=== PATIENT | female | born 2000 | race Caucasian/White ===

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

== ENCOUNTER 2021-03-02 13:17 | Outpatient (REF) | payer MEDICAID, SELFPAY ==
[2021-03-03 16:19] LABS: COVID-19 RT-PCR UVMMC Result Positive (Negative)
== END 2021-03-02 13:18 | disposition home or self-care (01) ==
LOC: NCHCN 13:17
PROVIDERS: Visit Provider Nurse Practitioner Family
DX: Z20.822 Contact with and (suspected) exposure to COVID-19 (principal)
CPT/HCPCS: U0003

== ENCOUNTER 2021-11-09 13:22 | Outpatient (REF) | payer MEDICAID, SELFPAY ==
[2021-11-09 15:14] LABS: Bacteria Few HPF (Negative); C & S Indicated? C&S Done As Ordered; Casts Negative LPF (Negative); Crystals Negative HPF (Negative); Epithelial Cells Moderate HPF (Negative); Mucus Negative (Negative); RBC 0-2 HPF (0-2); WBC 20-50 HPF (0-5)
[2021-11-11 14:49] LABS: GC Result Negative (Negative)
[2021-11-11 14:57] LABS: Chlamydia Result Positive (Negative)
== END 2021-11-09 13:23 | disposition home or self-care (01) ==
LOC: LBN 13:22
PROVIDERS: Visit Provider Physician Assistant Medical
DX: R35.0 Frequency of micturition (principal)
CPT/HCPCS: 87491; 87591; 81015; 87086; 87480; 87510; 87660

== ENCOUNTER 2021-11-25 14:57 | Emergency (ER) | payer MEDICAID, SELFPAY ==
[2021-11-25 15:20] VITALS: BP 122/64; PULSE 74; RESP 18; TEMP 36.8
--- NOTE | 2021-11-25 15:30 | RT.EKG_ITS ---
APPROVED REPORT Exam: Resting ECG Reason for Exam: dizzy Patient Location: E HR:57 bpm ECG Measurements Heart Rate 57 AXIS ME 157 P 18 QRSd 79 QRS 61 QT 424 T 36 QTc 413 Conclusion Sinus bradycardia...rate< 60
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
[2021-11-25 16:00] VITALS: RESP 18
[2021-11-25 16:04] LABS: Abs Immature Grans 0.03 10^3/uL (0.0-0.06); Absolute Basophil Count 0.08 10^3/uL (0.0-0.2); Absolute Eosinophil Count 0.26 10^3/uL (0.0-0.7); Absolute Lymphocyte Count 2.93 10^3/uL (1.2-3.4); Absolute Monocyte Count 0.41 10^3/uL (0.1-0.8); Absolute Neutrophil Count 4.35 10^3/uL (1.2-6.7); Eosinophils % 3.2; HCT 48.2 % (36.0-46.0); HGB 15.9 g/dL (11.2-15.7); Immature Grans % 0.4; Lymphocytes % 36.4; MCH 28.6 pg (27.0-33.0); MCV 87 fL (80-95); Monocytes % 5.1; Neutrophils % 53.9; Platelet Count 277 10^3/uL (130-400); RBC 5.56 10^6/uL (3.93-5.22); RDW 12.4 % (11.7-14.6); RDW-SD 39.8 fL; WBC 8.06 10^3/uL (4.4-10.8)
[2021-11-25 16:10] LABS: Bilirubin Negative (Negative); Blood Negative (Negative); Clarity Clear (Clear); Glucose Negative (Negative); Ketones Negative (Negative); Leukocyte Esterase Negative (Negative); Nitrite Negative (Negative); Urobilinogen 0.2 EU/dL (Up TO 0.2)
[2021-11-25] MEDS: Normal Saline 1,000 ML 1000 ML IV (16:10)
[2021-11-25] MEDS: Meclizine 25 MG TAB PO (16:10)
[2021-11-25] MEDS: Ondansetron 4 MG/2 ML VIAL IVP (16:10)
[2021-11-25] MEDS: Ketorolac 30 MG/ML VIAL IVP (16:10)
[2021-11-25 16:20] VITALS: BP 120/74; BP 120/78; BP 122/80; PULSE 65; PULSE 70; PULSE 72
[2021-11-25 16:20] LABS: ALT 58 U/L (14-59); AST 26 U/L (15-37); Albumin 4.3 g/dL (3.4-5.0); Alkaline Phosphatase 91 U/L (46-116); Anion Gap 8.9 mmol/L (3-11); BUN 14 mg/dL (7-18); Bilirubin, Total 0.3 mg/dL (0.2-1.0); CO2 28.1 mmol/L (21.0-32.0); Calcium 9.3 mg/dL (8.5-10.1); Chloride 106 mmol/L (98-107); Glucose 91 mg/dL (74-106); Sodium 143 mmol/L (136-145); Total Protein 8.5 g/dL (6.4-8.2)
[2021-11-25 16:21] LABS: *AMPHETAMINES SCREEN URINE Negative (Negative); *BARBITURATES SCREEN URINE Negative (Negative); *BENZODIAZEPINES SCREEN URINE Negative (Negative); Cannabinoids THC Negative (Negative); Cocaine Screen,Urine Negative (Negative); METHADONE URINE SCREEN Negative (Negative); OPIATES URINE SCREEN Negative (Negative)
[2021-11-25 16:22] LABS: Tricyclic Antidepressants Negative (Negative)
[2021-11-25 17:02] VITALS: BP 120/72; PULSE 68; RESP 18; TEMP 36.8; O2SAT 98
== END 2021-11-25 16:57 | disposition home or self-care (01) ==
PROVIDERS: Emergency Provider Physician Assistant; PCP Nurse Practitioner Family
DX: R51.9 Headache, unspecified (principal); R42 Dizziness and giddiness; R11.0 Nausea
CPT/HCPCS: 36415; 80053; 80307; 81025; 93005; 96361; 96374; 96375; 99284; 81003; 85025; 93010; 99283; J1885; J2405

== ENCOUNTER 2021-12-20 12:59 | Outpatient (REF) | payer MEDICAID, SELFPAY ==
[2021-12-21 15:26] LABS: Chlamydia Result Negative (Negative); GC Result Negative (Negative)
== END 2021-12-20 13:00 | disposition home or self-care (01) ==
LOC: LBN 12:59
PROVIDERS: PCP Nurse Practitioner Family; Visit Provider Obstetrics & Gynecology
DX: Z11.3 Encounter for screening for infections with a predominantly sexual mode of transmission (principal)
CPT/HCPCS: 87491; 87591

== ENCOUNTER 2022-02-03 14:49 | Outpatient (REF) | payer MEDICAID, SELFPAY ==
[2022-02-05 15:43] LABS: Chlamydia Result Negative (Negative); GC Result Negative (Negative)
== END 2022-02-03 14:50 | disposition home or self-care (01) ==
LOC: LBN 14:49
PROVIDERS: PCP Nurse Practitioner Family; Visit Provider Physician Assistant Medical
DX: N89.8 Other specified noninflammatory disorders of vagina (principal); Z11.3 Encounter for screening for infections with a predominantly sexual mode of transmission
CPT/HCPCS: 87491; 87591; 87480; 87510; 87660

== ENCOUNTER 2022-02-06 02:29 | Outpatient (CLI) | payer MEDICAID, SELFPAY ==
[2022-02-06 11:09] LABS: Kit/Specimen SENT
[2022-02-06 11:20] LABS: Abs Immature Grans 0.04 10^3/uL (0.0-0.06); Absolute Basophil Count 0.05 10^3/uL (0.0-0.2); Absolute Eosinophil Count 0.14 10^3/uL (0.0-0.7); Absolute Lymphocyte Count 2.05 10^3/uL (1.2-3.4); Absolute Monocyte Count 0.44 10^3/uL (0.1-0.8); Absolute Neutrophil Count 8.01 10^3/uL (1.2-6.7); Basophils % 0.5; Eosinophils % 1.3; HCT 39.3 % (36.0-46.0); HGB 13.8 g/dL (11.2-15.7); Immature Grans % 0.4; Lymphocytes % 19.1; MCH 29.1 pg (27.0-33.0); MCHC 35.1 % (32.0-36.0); MCV 83 fL (80-95); MPV 9.1 fL (8.0-11.0); Monocytes % 4.1; Neutrophils % 74.6; Platelet Count 227 10^3/uL (130-400); RBC 4.74 10^6/uL (3.93-5.22); RDW 13.2 % (11.7-14.6); RDW-SD 39.8 fL; WBC 10.73 10^3/uL (4.4-10.8)
[2022-02-06 12:08] LABS: TSH (W/Ref FT4) 2.13 uIU/mL (0.36-3.74)
[2022-02-07 09:30] LABS: Hepatitis B Surface Ag Negative (Negative)
[2022-02-07 10:10] LABS: Hepatitis C Ab w Rflx HCV PCR Negative (Negative)
[2022-02-07 10:45] LABS: Rubella IgG Ab (UVM) Positive (See Note); Varicella IgG Antibody Negative (See Note)
[2022-02-07 11:26] LABS: HIV-1/2 Ag & Ab Screen Negative (Negative)
[2022-02-07 22:24] LABS: Syphilis IgG w/Reflex Nonreactive (Nonreactive)
[2022-02-28 22:17] LABS: Result Summary NEGATIVE; Specimen WB Whole Blood
== END 2022-02-06 02:30 | disposition home or self-care (01) ==
LOC: LBO 02:29
PROVIDERS: PCP Nurse Practitioner Family; Visit Provider Advanced Practice Midwife
DX: Z34.01 Encounter for supervision of normal first pregnancy, first trimester; F32.9 Major depressive disorder, single episode, unspecified
CPT/HCPCS: 36415; 81220; 81222; 86787; 86803; 86850; 86900; 86901; 87340; 87389; 84443; 85025; 86762; 86780

== ENCOUNTER 2022-02-06 15:23 | Outpatient (REF) | payer MEDICAID, SELFPAY ==
[2022-02-08 08:24] LABS: Chlamydia Result Negative (Negative); GC Result Negative (Negative)
== END 2022-02-06 15:24 | disposition home or self-care (01) ==
LOC: LBN 15:23
PROVIDERS: PCP Nurse Practitioner Family; Visit Provider Advanced Practice Midwife
DX: Z34.91 Encounter for supervision of normal pregnancy, unspecified, first trimester; R30.0 Dysuria
CPT/HCPCS: 87491; 87591; 87480; 87510; 87660

== ENCOUNTER 2022-03-12 01:49 | Emergency (ER) | payer MEDICAID, SELFPAY ==
[2022-03-12 01:56] VITALS: BP 120/74; PULSE 102; RESP 16; TEMP 36.9; O2SAT 98
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
[2022-03-12] MEDS: Acetaminophen 325 MG TAB 650 MG PO (02:10)
[2022-03-12] MEDS: Lidocaine 2% Viscous 15 ML CUP PO (02:15)
== END 2022-03-12 02:27 | disposition home or self-care (01) ==
PROVIDERS: Emergency Provider Emergency Medicine; PCP Nurse Practitioner Family
DX: O26.892 Other specified pregnancy related conditions, second trimester (principal); J02.9 Acute pharyngitis, unspecified; Z3A.16 16 weeks gestation of pregnancy
CPT/HCPCS: 87880; 99282; 87081

== ENCOUNTER → 2022-04-10 01:25 | Outpatient (CLI) | payer MEDICAID, SELFPAY ==
--- NOTE | 2022-04-10 06:32 | DI.US_ITS ---
Exam(s) US OB 2-3 TRIMESTER EXAM: US OB 2-3 TRIMESTER CLINICAL HISTORY: ,z34.90. TECHNIQUE: Transabdominal obstetrical ultrasound was performed. COMPARISON: No exams were available for comparison FINDINGS: There is a single viable intrauterine gestation with cardiac activity identified-150 bpm. Amniotic fluid: There is a normal amount of amniotic fluid. Placental location: The placenta is posterior grade 0. The distance from the tip the placenta to the internal cervical os is 1.6 cm. ANATOMY: A 3 vessel umbilical cord is seen. A four-chamber cardiac view was obtained. Right and left ventricular outflow tracts were imaged. There are no obvious abnormalities of the spinal column evident. There is no obvious abnormal ity of the anterior abdominal wall. stomach and urinary bladder are identified and there is no evidence of hydronephrosis. No abnormalities of the upper lip region are identified. No evidence of choroid plexus cysts i n the brain. Dating parameters place this at approximately 20 weeks and 3 days gestational age. BPD measures 20 weeks and 1 day HC measures 20 weeks and 4 days AC measures 20 weeks and 4 days FL measures 20 weeks and 3 days Estimated weight is 359 gm-0 pounds, 13 ounces Fetus is at the 50th percentile on the Hadlock scale. IMPRESSION:: Single viable intrauterine gestation which is approximately 20 weeks and 3 days gestati onal age, implying an RONALD of August 25, 2022. There are no obvious anomalies evident on today's study. The placenta is posterior and slightly low lying. On 1 image today the placenta to internal cervical os distance is 1.6 cm. This should be recheck in the 3rd trimester. There is a normal amount of amniotic fluid. DATA REPOSITORY:
== END ==
PROVIDERS: PCP Nurse Practitioner Family; Visit Provider Advanced Practice Midwife
DX: Z34.92 Encounter for supervision of normal pregnancy, unspecified, second trimester (principal)
CPT/HCPCS: 76805

== ENCOUNTER 2022-05-28 01:08 | Outpatient (CLI) | payer MEDICAID, SELFPAY ==
[2022-05-28 12:07] LABS: HCT 35.1 % (36.0-46.0); MCH 29.6 pg (27.0-33.0); MCHC 34.2 % (32.0-36.0); MCV 87 fL (80-95); MPV 8.8 fL (8.0-11.0); Platelet Count 214 10^3/uL (130-400); RBC 4.05 10^6/uL (3.93-5.22); RDW-SD 44.8 fL; WBC 11.14 10^3/uL (4.4-10.8)
[2022-05-28 12:23] LABS: Glucose,1 Hr (Glucola) 92 mg/dL (80-140)
== END 2022-05-28 01:09 | disposition home or self-care (01) ==
LOC: LBO 01:08
PROVIDERS: PCP Nurse Practitioner Family; Visit Provider Advanced Practice Midwife
DX: Z34.92 Encounter for supervision of normal pregnancy, unspecified, second trimester (principal)
CPT/HCPCS: 36415; 82950; 85027

== ENCOUNTER 2022-06-06 00:38 | Outpatient (CLI) | payer MEDICAID, SELFPAY ==
--- NOTE | 2022-06-06 07:15 | DI.US_ITS ---
Exam(s) US OB TIFFANY WEIGHT EXAM: US OB TIFFANY WEIGHT CLINICAL HISTORY: F/U LOW LYING PLACENTA,o44.42. TECHNIQUE: Transabdominal obstetrical ultrasound performed. COMPARISON: US US OB 2-3 TRIMESTER from 04/10/2022 FINDINGS: Number of fetuses: 1 position: CEPHALIC Placental location: There is a grade 1 posterior placenta. The placental tip is 8.3 cm from the inte rnal os. No evidence of previa. BIOMETRIC DATA: BPD: 7.2cm, 28weeks 6days HC: 26.78cm, 29weeks 1day AC: 25.12cm, 29weeks 2days FL: 5.28cm, 28weeks 1day EFW: 1,297.66g, 2lb 14.73oz, 48.3% Composite Age: 28weeks 6days RONALD: 08/23/2022 Heart Rate: 141bpm Amniotic fluid index: 13.31cm. Visually, amount of fluid is within normal limits. IMPRESSION: 1. Single live intrauterine gestation as above. 2. No evidence of a low-lying placenta. 3. Estimated weight is 1297gms. This is the 48th percentile. 4. Amniotic fluid index is 13.3 cm. Visually within normal limits. DATA REPOSITORY:
== END 2022-06-06 00:58 ==
LOC: DI 00:38
PROVIDERS: PCP Nurse Practitioner Family; Visit Provider Advanced Practice Midwife
DX: O44.43 Low lying placenta NOS or without hemorrhage, third trimester (principal); Z3A.29 29 weeks gestation of pregnancy
CPT/HCPCS: 76816

== ENCOUNTER 2022-06-20 09:59 | Outpatient (REF) | payer MEDICAID, SELFPAY ==
[2022-06-21 15:01] LABS: Chlamydia Result Negative (Negative); GC Result Negative (Negative)
== END 2022-06-20 10:00 | disposition home or self-care (01) ==
LOC: LBN 09:59
PROVIDERS: PCP Nurse Practitioner Family; Visit Provider Advanced Practice Midwife
DX: Z34.90 Encounter for supervision of normal pregnancy, unspecified, unspecified trimester (principal)
CPT/HCPCS: 87491; 87591

== ENCOUNTER 2022-07-23 16:41 | Outpatient (CLI) | payer MEDICAID, SELFPAY ==
[2022-07-23 17:02] VITALS: BP 134/69; PULSE 74; TEMP 36.8
[2022-07-23 17:15] VITALS: BP 134/69; PULSE 74
[2022-07-23 17:47] LABS: COMMENT (LAB VIEW ONLY) 129.63 mg/dL; PROTEIN 32.8 mg/dL; Prot/Crea Ur Ratio 0.25
== END 2022-07-23 17:45 ==
LOC: BCD 16:43 → OBS 16:58
PROVIDERS: Advanced Practice Midwife; PCP Nurse Practitioner Family; Visit Provider Advanced Practice Midwife
DX: O13.3 Gestational [pregnancy-induced] hypertension without significant proteinuria, third trimester (principal); Z3A.35 35 weeks gestation of pregnancy
CPT/HCPCS: 59025; 82565; 84156

== ENCOUNTER 2022-07-23 16:43 | Outpatient (CLI) | payer MEDICAID, SELFPAY ==
[2022-07-23 16:52] LABS: HCT 35.4 % (36.0-46.0); HGB 11.8 g/dL (11.2-15.7); MCH 28.4 pg (27.0-33.0); MCHC 33.3 % (32.0-36.0); MCV 85 fL (80-95); MPV 9.5 fL (8.0-11.0); Platelet Count 202 10^3/uL (130-400); RBC 4.16 10^6/uL (3.93-5.22); RDW 13.6 % (11.7-14.6); RDW-SD 42.2 fL; WBC 10.33 10^3/uL (4.4-10.8)
[2022-07-23 17:14] LABS: ALT 20 U/L (14-59); AST 15 U/L (15-37); Albumin 2.7 g/dL (3.4-5.0); Alkaline Phosphatase 124 U/L (46-116); Anion Gap 9.2 mmol/L (3-11); BUN 11 mg/dL (7-18); Bilirubin, Total 0.2 mg/dL (0.2-1.0); CO2 22.8 mmol/L (21.0-32.0); CREATININE 0.9 mg/dL (0.55-1.02); Calcium 8.9 mg/dL (8.5-10.1); Chloride 105 mmol/L (98-107); Estimated GFR 93.28 (mL/min/1.73m2); Glucose 114 mg/dL (74-106); Potassium 3.7 mmol/L (3.5-5.1); Sodium 137 mmol/L (136-145); Total Protein 6.7 g/dL (6.4-8.2)
== END 2022-07-23 16:44 | disposition home or self-care (01) ==
LOC: LBO 16:43
PROVIDERS: Advanced Practice Midwife; PCP Nurse Practitioner Family; Visit Provider Advanced Practice Midwife
DX: O13.3 Gestational [pregnancy-induced] hypertension without significant proteinuria, third trimester (principal); Z3A.00 Weeks of gestation of pregnancy not specified
CPT/HCPCS: 36415; 80053; 85027; 84550

== ENCOUNTER 2022-07-26 16:00 | Outpatient (CLI) | payer MEDICAID, SELFPAY ==
[2022-07-26 16:19] LABS: HCT 35.9 % (36.0-46.0); HGB 11.9 g/dL (11.2-15.7); MCH 28.1 pg (27.0-33.0); MCHC 33.1 % (32.0-36.0); MCV 85 fL (80-95); MPV 9.7 fL (8.0-11.0); Platelet Count 223 10^3/uL (130-400); RBC 4.23 10^6/uL (3.93-5.22); RDW 13.8 % (11.7-14.6); RDW-SD 42.6 fL; WBC 10.05 10^3/uL (4.4-10.8)
[2022-07-26 16:22] VITALS: BP 127/79; PULSE 83; TEMP 36.7
[2022-07-26] MEDS: Acetaminophen 500 MG TAB 1000 MG PO (16:40)
[2022-07-26 16:42] VITALS: PULSE 79; O2SAT 100
[2022-07-26 17:22] LABS: PROTEIN 78.7 mg/dL; Prot/Crea Ur Ratio 0.21
[2022-07-26 17:25] LABS: ALT 20 U/L (14-59); AST 18 U/L (15-37); Albumin 2.7 g/dL (3.4-5.0); Alkaline Phosphatase 128 U/L (46-116); Anion Gap 8.2 mmol/L (3-11); BUN 8 mg/dL (7-18); Bilirubin, Total 0.2 mg/dL (0.2-1.0); CO2 21.8 mmol/L (21.0-32.0); CREATININE 0.9 mg/dL (0.55-1.02); Calcium 9.2 mg/dL (8.5-10.1); Chloride 106 mmol/L (98-107); Estimated GFR 93.28 (mL/min/1.73m2); Glucose 82 mg/dL (74-106); Sodium 136 mmol/L (136-145); Total Protein 7.1 g/dL (6.4-8.2); Uric Acid 5.2 mg/dL (2.6-6.0)
[2022-07-26 17:28] VITALS: BP 133/93; PULSE 70
[2022-07-26 17:47] VITALS: BP 129/87; PULSE 75
[2022-07-26 19:22] VITALS: BP 123/74; PULSE 122
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
[2022-07-27 02:18] VITALS: BP 127/79; PULSE 83; TEMP 36.7
== END 2022-07-26 18:02 | disposition home or self-care (01) ==
LOC: BCD 16:06 → OBS 16:10
PROVIDERS: PCP Nurse Practitioner Family; Visit Provider Advanced Practice Midwife
DX: O13.3 Gestational [pregnancy-induced] hypertension without significant proteinuria, third trimester (principal); Z3A.35 35 weeks gestation of pregnancy
CPT/HCPCS: 80053; 85027; 59025; 82565; 84156; 84550

== ENCOUNTER 2022-07-30 11:20 | Outpatient (CLI) | payer MEDICAID, SELFPAY ==
[2022-07-30 15:55] VITALS: BP 129/75; PULSE 87; TEMP 36.8
[2022-07-30 16:03] VITALS: BP 129/75; PULSE 87
--- NOTE | 2022-07-30 16:50 | W.OBNST ---
Date of service: 07/30/22 Time of Service: 16:50 NST Evaluation Reason for NST Reasons for Nonstress Test: GESTATIONAL HYPERTENSION Gestational Age Gestational Age in Weeks and Days: 36 Weeks and 2Days Test and Monitor Explained Test/Monitor Explained: Test Explained, Monitor Explained and Patient Verbalized Understanding Vital Signs Blood Pressure: 129/75 Pulse: 87 Temperature: 98.2 F Urine Results Urine Protein: Positive Urine Ketones: Negative Urine Glucose: Negative Urine Blood: Negative NST Information Date on Monitor: 07/30/22 Time on Monitor: 15:58 Date off Monitor: 07/30/22 Time off Monitor: 16:32 Total Time on Monitor: 34 NST Interventions: PO Hydration NST Evaluation Patient States Movement: Present FHR Baseline: 135 Variability: Moderate 6-25 bpm Accelerations: 15x15 Decelerations: None NST Results: Reactive Note Ultrasound Done: N/A. NST Note Note: Josue reports that she is feeling better. She suspected that her air conditioner was leaking freon last week and was making her sick. her air filter was checked and it was dirty and there was no freon leak. pedal edema is trace and improved since last exam. Trace urine protein by dip. protein creatinene ratio sent. Await results. She will return for visit in 2 days. NST Reviewed and Verified by: Maria E Yang
[2022-07-30 16:52] VITALS: BP 129/75; PULSE 87; TEMP 36.8
[2022-07-30 17:20] LABS: COMMENT (LAB VIEW ONLY) 244.59 mg/dL; PROTEIN 66.1 mg/dL; Prot/Crea Ur Ratio 0.27
== END 2022-07-30 16:41 | disposition home or self-care (01) ==
LOC: BCD 11:22 → OBS 15:44
PROVIDERS: PCP Nurse Practitioner Family; Visit Provider Advanced Practice Midwife
DX: O13.3 Gestational [pregnancy-induced] hypertension without significant proteinuria, third trimester (principal); Z3A.36 36 weeks gestation of pregnancy; O12.03 Gestational edema, third trimester
CPT/HCPCS: 59025; 82565; 84156

== ENCOUNTER 2022-08-01 16:13 | Outpatient (REF) | payer MEDICAID, SELFPAY | END 2022-08-01 16:14 | disposition home or self-care (01) | LOC: LBN 16:13 | PROVIDERS: PCP Nurse Practitioner Family; Visit Provider Advanced Practice Midwife | DX: Z34.93 Encounter for supervision of normal pregnancy, unspecified, third trimester (principal); Z36.85 Encounter for antenatal screening for Streptococcus B; Z3A.36 36 weeks gestation of pregnancy | CPT/HCPCS: 87081 ==

== ENCOUNTER 2022-08-07 08:28 | Outpatient (CLI) | payer MEDICAID, SELFPAY ==
[2022-08-07 16:53] VITALS: BP 132/88; PULSE 77
[2022-08-07 17:13] VITALS: BP 128/82; PULSE 82
[2022-08-07 17:19] VITALS: BP 132/77; PULSE 77
[2022-08-07 17:21] VITALS: BP 128/82; PULSE 82
--- NOTE | 2022-08-07 17:38 | W.OBNST ---
Date of service: 08/07/22 Time of Service: 17:00 NST Evaluation Reason for NST Reasons for Nonstress Test: GESTATIONAL HYPERTENSION Gestational Age Gestational Age in Weeks and Days: 37 Weeks and 3Days Test and Monitor Explained Test/Monitor Explained: Test Explained Vital Signs Blood Pressure: 132/77 Pulse: 77 NST Information Date on Monitor: 08/07/22 Time on Monitor: 16:50 Date off Monitor: 08/07/22 Time off Monitor: 17:13 Total Time on Monitor: 23 NST Interventions: None NST Evaluation Patient States Movement: Present FHR Baseline: 130 Variability: Moderate 6-25 bpm Accelerations: 15x15 Decelerations: None NST Results: Reactive Note Ultrasound Done: N/A. NST Note Note: NST due to mild BP elevations in . No 140/90 readings to date. Will be discontinuing NST's after today. [place] NST is reactive and reassuring. VE done per patient request, Closed /50/-3 softening. Has office appointment this week. BALDEMAR NST Reviewed and Verified by: Maria E Adams
[2022-08-07 17:40] VITALS: BP 132/77; PULSE 77
== END 2022-08-07 17:15 | disposition home or self-care (01) ==
LOC: BCD 08:29 → OBS 16:10
PROVIDERS: PCP Nurse Practitioner Family; Visit Provider Advanced Practice Midwife
DX: O13.3 Gestational [pregnancy-induced] hypertension without significant proteinuria, third trimester (principal); Z3A.37 37 weeks gestation of pregnancy
CPT/HCPCS: 59025

== ENCOUNTER 2022-08-14 14:34 | Inpatient (IN) | payer MEDICAID, SELFPAY ==
[2022-08-14] VITALS (10 sets, daily range): BP systolic 124–143; BP diastolic 76–93; PULSE 68–77; TEMP 36.5–36.7
[2022-08-14 11:56] LABS: HGB 12.4 g/dL (11.2-15.7); MCH 28.1 pg (27.0-33.0); MCHC 32.6 % (32.0-36.0); MCV 86 fL (80-95); MPV 9.9 fL (8.0-11.0); Platelet Count 203 10^3/uL (130-400); RBC 4.41 10^6/uL (3.93-5.22); RDW 13.9 % (11.7-14.6); RDW-SD 43.3 fL; WBC 10.21 10^3/uL (4.4-10.8)
[2022-08-14 12:16] LABS: ALT 14 U/L (14-59); AST 18 U/L (15-37); Albumin 2.6 g/dL (3.4-5.0); Alkaline Phosphatase 142 U/L (46-116); Anion Gap 10.3 mmol/L (3-11); BUN 14 mg/dL (7-18); Bilirubin, Total 0.1 mg/dL (0.2-1.0); CO2 22.7 mmol/L (21.0-32.0); CREATININE 1.1 mg/dL (0.55-1.02); Chloride 106 mmol/L (98-107); Estimated GFR 73.31 (mL/min/1.73m2); Glucose 103 mg/dL (74-106); Potassium 4.1 mmol/L (3.5-5.1); Sodium 139 mmol/L (136-145); Total Protein 6.9 g/dL (6.4-8.2)
[2022-08-14 12:37] LABS: LDH 172 U/L (81-234); Uric Acid 5.8 mg/dL (2.6-6.0)
[2022-08-14 13:11] LABS: COMMENT (LAB VIEW ONLY) 95.01 mg/dL; Prot/Crea Ur Ratio 0.44
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
[2022-08-14] MEDS: Nalbuphine 10 MG/ML AMP SC (16:26)
--- NOTE | 2022-08-14 16:51 | PGE_ITS ---
Date of service: 08/14/22 Time of Service: 16:51 Pelvic Exam Dilation: 1 Effacement (%): 70 station: -3 Cervix Position: mid Consistency: medium Vaginal Exam Presentation: Cephalic Contractions Contraction Frequency(min): Q 4 to 10 minutes Fetus A Monitor: External (US) Heart Rate Baseline: 140 Presentation: Cephalic Variability: Moderate (6-25 BPM) Categories: Category I FHR Rhythm: Regular Accelerations: Present Decelerations: None Amniotic Membrane Status: Intact Assessment and Plan Assessment and plan (1) Prolonged latent phase of labor: Status: Acute Assessment and plan: Nubain SQ for comfort Vistaril PO and Morphine IM for therapeutic rest at bedtime Reassess with change in maternal status or in several hours (2) Hypertension affecting in third trimester: Status: Acute Assessment and plan: BPs q 2 hours while pt is awake IOL if staffing permits Monitor overnight, IOL in am MD aware and agrees with plan Objective Abnormal lab results 08/14/22 Range/Units 11:55 Creatinine 1.1 H (0.55-1.02) mg/dL Total Bilirubin 0.1 L (0.2-1.0) mg/dL Alkaline Phosphatase 142 H (46-116) U/L Albumin 2.6 L (3.4-5.0) g/dL Pulse BP 68 141/88 H 08/14/22 14:59 08/14/22 14:59 Laboratory Results WBC 10.21 10^3/uL (4.4-10.8) 08/14/22 11:55 RBC 4.41 10^6/uL (3.93-5.22) 08/14/22 11:55 Hgb 12.4 g/dL (11.2-15.7) 08/14/22 11:55 Hct 38.0 % (36.0-46.0) 08/14/22 11:55 MCV 86 fL (80-95) 08/14/22 11:55 MCH 28.1 pg (27.0-33.0) 08/14/22 11:55 MCHC 32.6 % (32.0-36.0) 08/14/22 11:55 RDW 13.9 % (11.7-14.6) 08/14/22 11:55 Plt Count 203 10^3/uL (130-400) 08/14/22 11:55 MPV 9.9 fL (8.0-11.0) 08/14/22 11:55 Sodium 139 mmol/L (136-145) 08/14/22 11:55 Potassium 4.1 mmol/L (3.5-5.1) 08/14/22 11:55 Chloride 106 mmol/L (98-107) 08/14/22 11:55 Carbon Dioxide 22.7 mmol/L (21.0-32.0) 08/14/22 11:55 Anion Gap 10.3 mmol/L (3-11) 08/14/22 11:55 BUN 14 mg/dL (7-18) 08/14/22 11:55 Creatinine 1.1 mg/dL (0.55-1.02) H 08/14/22 11:55 Est GFR (CKD-EPI 2020) 73.31 (mL/min/1.73m2) 08/14/22 11:55 Glucose 103 mg/dL (74-106) 08/14/22 11:55 Uric Acid 5.8 mg/dL (2.6-6.0) 08/14/22 11:55 Calcium 9.0 mg/dL (8.5-10.1) 08/14/22 11:55 Total Bilirubin 0.1 mg/dL (0.2-1.0) L 08/14/22 11:55 AST 18 U/L (15-37) 08/14/22 11:55 ALT 14 U/L (14-59) 08/14/22 11:55 Alkaline Phosphatase 142 U/L (46-116) H 08/14/22 11:55 Lactate Dehydrogenase 172 U/L (81-234) 08/14/22 11:55 Total Protein 6.9 g/dL (6.4-8.2) 08/14/22 11:55 Albumin 2.6 g/dL (3.4-5.0) L 08/14/22 11:55 Ur Random Creatinine 95.01 mg/dL 08/14/22 12:40 U Random Total Protein 42.0 mg/dL 08/14/22 12:40 U [place] Prot/Creat Ratio 0.44 08/14/22 12:40 Patient ABO/Rh A Positive 08/14/22 14:47 Antibody Screen NEGATIVE 08/14/22 14:47 Vital Signs Reviewed: Yes Subjective Patient Reports: No new Complaints Interval history since last seen: The pt reports her contractions remain uncomfortable, but they have not gained in strength or frequency. Results Hemoglobin/Hematocrit: Hgb 12.4 g/dL (11.2-15.7) 08/14/22 11:55 Hct 38.0 % (36.0-46.0) 08/14/22 11:55 Abnormal Lab Findings: Abnormal Labs 08/14/22 11:55 Creatinine 1.1 H Total Bilirubin 0.1 L Alkaline Phosphatase 142 H Albumin 2.6 L
[2022-08-14] MEDS: hydrOXYzine PAMOATE 25 MG CAP 50 MG PO (22:07)
[2022-08-14] MEDS: MORPHine 10 MG/ML VIAL IM (22:08)
[2022-08-15] VITALS (167 sets, daily range): BP systolic 105–167; BP diastolic 48–98; PULSE 0–191; RESP 16–20; TEMP 36.6–38.4; O2SAT 82–100; BMI 34.7
[2022-08-15] MEDS: miSOPROStol 25 MCG TAB PO (03:39)
[2022-08-15] MEDS: Nalbuphine 10 MG/ML AMP SC (06:41)
--- NOTE | 2022-08-15 08:05 | PGE_ITS ---
Date of service: 08/15/22 Time of Service: 07:30 Informed Consent Informed Consent: Augmentation of Labor, Risk,Benefits,Alternatives Discussed and Other (pain management options reviewed) Pelvic Exam Comments: VE deferred until after epidural and will make plan for method of induction based on that exam Contractions Monitor Mode: Palpation Contraction Frequency(min): 2-4 Contraction Duration(sec): 60 Intensity: Moderate Fetus A Monitor: External (US) Heart Rate Baseline: 140 Variability: Moderate (6-25 BPM) Categories: Category I Accelerations: 15 X 15 Decelerations: None Amniotic Membrane Status: Intact Assessment and Plan Assessment and plan (1) Pre-eclampsia in third trimester: Status: Acute Assessment and plan: 1. due to BP's 5/2 of >140 diastolic and pro/creat ratio of .44 diagnosis of pre-eclampsia is established but she has no severe features. 2. Prolonged latent phase of labor and patient has great fatigue, requesting epidural prior to going forward with induction. 3. she wants to wait for her Mom to come before epidural. will hold this dose of misoprostol and allow patient to be off the monitor for a short period of time prior to calling anesthesia when Mother is here. 4. IV access obtained 5. Will begin GBS prophylaxis when indicated by cervical changes or if pitocin is started after epidural. KH Objective Abnormal lab results 08/14/22 Range/Units 11:55 Creatinine 1.1 H (0.55-1.02) mg/dL Total Bilirubin 0.1 L (0.2-1.0) mg/dL Alkaline Phosphatase 142 H (46-116) U/L Albumin 2.6 L (3.4-5.0) g/dL Temp Pulse BP 98.3 F 82 125/85 08/15/22 05:29 08/15/22 07:32 08/15/22 07:32 Laboratory Results WBC 10.21 10^3/uL (4.4-10.8) 08/14/22 11:55 RBC 4.41 10^6/uL (3.93-5.22) 08/14/22 11:55 Hgb 12.4 g/dL (11.2-15.7) 08/14/22 11:55 Hct 38.0 % (36.0-46.0) 08/14/22 11:55 MCV 86 fL (80-95) 08/14/22 11:55 MCH 28.1 pg (27.0-33.0) 08/14/22 11:55 MCHC 32.6 % (32.0-36.0) 08/14/22 11:55 RDW 13.9 % (11.7-14.6) 08/14/22 11:55 Plt Count 203 10^3/uL (130-400) 08/14/22 11:55 MPV 9.9 fL (8.0-11.0) 08/14/22 11:55 Sodium 139 mmol/L (136-145) 08/14/22 11:55 Potassium 4.1 mmol/L (3.5-5.1) 08/14/22 11:55 Chloride 106 mmol/L (98-107) 08/14/22 11:55 Carbon Dioxide 22.7 mmol/L (21.0-32.0) 08/14/22 11:55 Anion Gap 10.3 mmol/L (3-11) 08/14/22 11:55 BUN 14 mg/dL (7-18) 08/14/22 11:55 Creatinine 1.1 mg/dL (0.55-1.02) H 08/14/22 11:55 Est GFR (CKD-EPI 2020) 73.31 (mL/min/1.73m2) 08/14/22 11:55 Glucose 103 mg/dL (74-106) 08/14/22 11:55 Uric Acid 5.8 mg/dL (2.6-6.0) 08/14/22 11:55 Calcium 9.0 mg/dL (8.5-10.1) 08/14/22 11:55 Total Bilirubin 0.1 mg/dL (0.2-1.0) L 08/14/22 11:55 AST 18 U/L (15-37) 08/14/22 11:55 ALT 14 U/L (14-59) 08/14/22 11:55 Alkaline Phosphatase 142 U/L (46-116) H 08/14/22 11:55 Lactate Dehydrogenase 172 U/L (81-234) 08/14/22 11:55 Total Protein 6.9 g/dL (6.4-8.2) 08/14/22 11:55 Albumin 2.6 g/dL (3.4-5.0) L 08/14/22 11:55 Ur Random Creatinine 95.01 mg/dL 08/14/22 12:40 U Random Total Protein 42.0 mg/dL 08/14/22 12:40 U [place] Prot/Creat Ratio 0.44 08/14/22 12:40 Patient ABO/Rh A Positive 08/14/22 14:47 Antibody Screen NEGATIVE 08/14/22 14:47 Vital Signs Reviewed: Yes Subjective Interval history since last seen: Josue is doing well but remains very uncomfortable with contractions. She has had Nubain twice and declines Nitrous. Is requesting epidural if more contractions are needed today. She states she feels she needs painless sleep in order to allow herself to labor well. Is aware that she will need to be in bed and IV/EFM continuous and that she may need oshea for bladder. Will start IV and nursing will call for epidural when IV is infusing. KH Results Hemoglobin/Hematocrit: Hgb 12.4 g/dL (11.2-15.7) 08/14/22 11:55 Hct 38.0 % (36.0-46.0) 08/14/22 11:55 Abnormal Lab Findings: Abnormal Labs 08/14/22 11:55 Creatinine 1.1 H Total Bilirubin 0.1 L Alkaline Phosphatase 142 H Albumin 2.6 L
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
[2022-08-15] MEDS: Lactated Ringers 500 ML IV (09:20)
--- NOTE | 2022-08-15 10:13 | W.PM.OBNL1 ---
Date of service: 08/15/22 Time of Service: 10:13 Informed Consent Informed Consent: Augmentation of Labor, Risk,Benefits,Alternatives Discussed and Other (pain management options reviewed) Pelvic Exam Dilation: 2 Effacement (%): 90 station: -1 Position: AISHWARYA Cervix Position: mid Consistency: soft BISHOPS Score(Cervical Ripeness Score): 9 Contractions Monitor Mode: External Contraction Frequency(min): irregular Contraction Duration(sec): 60 Intensity: Mild/Moderate Fetus A Monitor: External (US) Heart Rate Baseline: 135 Variability: Moderate (6-25 BPM) Categories: Category I Accelerations: 15 X 15 Decelerations: None Amniotic Membrane Status: Intact Assessment and Plan Assessment and plan (1) Pre-eclampsia in third trimester: Status: Acute Assessment and plan: 1. epidural is in place and helping patient's pain level 2. Will begin pitocin augmentation 3. Expect NVD (2) Group B Streptococcus carrier, +RV culture, currently : Status: Acute Assessment and plan: 1. will start GBS prophylaxis with PCN. Objective Abnormal lab results 08/14/22 Range/Units 11:55 Creatinine 1.1 H (0.55-1.02) mg/dL Total Bilirubin 0.1 L (0.2-1.0) mg/dL Alkaline Phosphatase 142 H (46-116) U/L Albumin 2.6 L (3.4-5.0) g/dL Temp Pulse Resp BP Pulse Ox 97.9 F 73 16 134/78 98 08/15/22 07:38 08/15/22 10:10 08/15/22 07:38 08/15/22 10:06 08/15/22 10:09 Laboratory Results WBC 10.21 10^3/uL (4.4-10.8) 08/14/22 11:55 RBC 4.41 10^6/uL (3.93-5.22) 08/14/22 11:55 Hgb 12.4 g/dL (11.2-15.7) 08/14/22 11:55 Hct 38.0 % (36.0-46.0) 08/14/22 11:55 MCV 86 fL (80-95) 08/14/22 11:55 MCH 28.1 pg (27.0-33.0) 08/14/22 11:55 MCHC 32.6 % (32.0-36.0) 08/14/22 11:55 RDW 13.9 % (11.7-14.6) 08/14/22 11:55 Plt Count 203 10^3/uL (130-400) 08/14/22 11:55 MPV 9.9 fL (8.0-11.0) 08/14/22 11:55 Sodium 139 mmol/L (136-145) 08/14/22 11:55 Potassium 4.1 mmol/L (3.5-5.1) 08/14/22 11:55 Chloride 106 mmol/L (98-107) 08/14/22 11:55 Carbon Dioxide 22.7 mmol/L (21.0-32.0) 08/14/22 11:55 Anion Gap 10.3 mmol/L (3-11) 08/14/22 11:55 BUN 14 mg/dL (7-18) 08/14/22 11:55 Creatinine 1.1 mg/dL (0.55-1.02) H 08/14/22 11:55 Est GFR (CKD-EPI 2020) 73.31 (mL/min/1.73m2) 08/14/22 11:55 Glucose 103 mg/dL (74-106) 08/14/22 11:55 Uric Acid 5.8 mg/dL (2.6-6.0) 08/14/22 11:55 Calcium 9.0 mg/dL (8.5-10.1) 08/14/22 11:55 Total Bilirubin 0.1 mg/dL (0.2-1.0) L 08/14/22 11:55 AST 18 U/L (15-37) 08/14/22 11:55 ALT 14 U/L (14-59) 08/14/22 11:55 Alkaline Phosphatase 142 U/L (46-116) H 08/14/22 11:55 Lactate Dehydrogenase 172 U/L (81-234) 08/14/22 11:55 Total Protein 6.9 g/dL (6.4-8.2) 08/14/22 11:55 Albumin 2.6 g/dL (3.4-5.0) L 08/14/22 11:55 Ur Random Creatinine 95.01 mg/dL 08/14/22 12:40 U Random Total Protein 42.0 mg/dL 08/14/22 12:40 U [place] Prot/Creat Ratio 0.44 08/14/22 12:40 Patient ABO/Rh A Positive 08/14/22 14:47 Antibody Screen NEGATIVE 08/14/22 14:47 Subjective Interval history since last seen: Josue is much more comfortable after epidural and is very tired. She agrees to pitocin augmentation of her labor. KH Interventions Pain Management Interventions: Epidural./ Augmentation (will begin pitocin augmenataion) , Pitocin rate (mU/min): 2 Results Hemoglobin/Hematocrit: Hgb 12.4 g/dL (11.2-15.7) 08/14/22 11:55 Hct 38.0 % (36.0-46.0) 08/14/22 11:55 Abnormal Lab Findings: Abnormal Labs 08/14/22 11:55 Creatinine 1.1 H Total Bilirubin 0.1 L Alkaline Phosphatase 142 H Albumin 2.6 L
[2022-08-15] MEDS: Lactated Ringers 1,000 ML 200 ML IV (10:19)
[2022-08-15] MEDS: FentaNYL/ROPIvacaine 2 mcg/ml and 0.1% 200 ML CADD Cassette EP (10:19)
--- NOTE | 2022-08-15 10:24 | W.ANESNEU ---
Epidural/Spinal Catheter Date Performed: 08/15/22 Procedure Start: 09:40 Procedure Stop: 09:55 Requesting Provider: Maria E Mc Procedure Location: Obstetrics Reason Performed: Labor Epidural Standard Monitors Applied: Blood Pressure and SpO2 Patient Position: Sitting Sedation Given (Indicate Dose Given): No Sedation given Patient Mental Status: Awake Sterility: Hand Hygiene, Surgical Cap, Surgical Mask, Sterile Gloves, Sterile Drape/Sheet and Chlorhexidine Procedure Location: L2-L3 Interspace Epidural Needle: Tuohy 17 Guage Needle Length: 3.5 Inch Needle Approach: Midline Epidural Procedure: JN to Saline Used Catheter Placed?: Catheter Placed Test Dose (Indicate Dose Given): 3ml 1.5% Lidocaine with 1:200K Epinephrine Given Loss of Resistance Depth (cm): 6 Catheter depth at skin (cm): 10 Dressing: [place] Dressing Placed and Mastisol Used Epidural Provider Bolus (Indicate Dose Given): Total Ropivacaine 0.1% with Fentanyl 2mcg/ml Given from pump. (ml) Dose:: 5 mL Additives (Indicate Dose Given ): None Infusion Medication: Medication Infusion Began Medication Infusion: Ropivacaine 0.1% with Fentanyl 2mcg/ml Maintenance Infusion Rate (ml/hour): 10 PCEA Bolus Dose (ml): 5 Block Level: N/A Paresthesia: None Ultrasound: Used to mariella site Number of Attempts (See previous attempts in note section): 2 Procedure Tolerated: No Complications Procedure Outcome: Successful Procedure Comment:: first attempts at L3-4 with weak JN, and muscle contraction on injection. Needle repositioned with same result. Moved up a space with easy placement. Block is slightly one sided, discussed the use of gravity to aid in evenness. Performed By: Steve Reyna
[2022-08-15] MEDS: Oxytocin/Normal Saline 30 UNIT/500 ML BAG 2 UNITS IV (11:00)
[2022-08-15] MEDS: Penicillin G POT. 5,000,000 UNITS in Normal Saline 100 ML 200 UNITS IVPB (11:16)
--- NOTE | 2022-08-15 13:26 | PGE_ITS ---
Date of service: 08/15/22 Time of Service: 13:20 Informed Consent Informed Consent: Augmentation of Labor, Risk,Benefits,Alternatives Discussed and Other (pain management options reviewed) Pelvic Exam Dilation: 4 Effacement (%): 100 station: -1 Cervix Position: mid Contractions Monitor Mode: External Contraction Frequency(min): 2-3 Contraction Duration(sec): 60 Intensity: Moderate Fetus A Assessment Note: tracing being re-established after interruption in tracing. Assessment and Plan Assessment and plan (1) Pre-eclampsia in third trimester: Status: Acute Assessment and plan: 1. continue present management 2. pitocin augmentation and PCN for GBS prophylaxis 3. Will reassess next VE when second dose of PCN being administered or as indicated by maternal status. Objective Temp Pulse Resp BP Pulse Ox 97.9 F 0 L 16 130/75 98 08/15/22 07:38 08/15/22 13:22 08/15/22 10:15 08/15/22 12:58 08/15/22 10:15 Laboratory Results WBC 10.21 10^3/uL (4.4-10.8) 08/14/22 11:55 RBC 4.41 10^6/uL (3.93-5.22) 08/14/22 11:55 Hgb 12.4 g/dL (11.2-15.7) 08/14/22 11:55 Hct 38.0 % (36.0-46.0) 08/14/22 11:55 MCV 86 fL (80-95) 08/14/22 11:55 MCH 28.1 pg (27.0-33.0) 08/14/22 11:55 MCHC 32.6 % (32.0-36.0) 08/14/22 11:55 RDW 13.9 % (11.7-14.6) 08/14/22 11:55 Plt Count 203 10^3/uL (130-400) 08/14/22 11:55 MPV 9.9 fL (8.0-11.0) 08/14/22 11:55 Sodium 139 mmol/L (136-145) 08/14/22 11:55 Potassium 4.1 mmol/L (3.5-5.1) 08/14/22 11:55 Chloride 106 mmol/L (98-107) 08/14/22 11:55 Carbon Dioxide 22.7 mmol/L (21.0-32.0) 08/14/22 11:55 Anion Gap 10.3 mmol/L (3-11) 08/14/22 11:55 BUN 14 mg/dL (7-18) 08/14/22 11:55 Creatinine 1.1 mg/dL (0.55-1.02) H 08/14/22 11:55 Est GFR (CKD-EPI 2020) 73.31 (mL/min/1.73m2) 08/14/22 11:55 Glucose 103 mg/dL (74-106) 08/14/22 11:55 Uric Acid 5.8 mg/dL (2.6-6.0) 08/14/22 11:55 Calcium 9.0 mg/dL (8.5-10.1) 08/14/22 11:55 Total Bilirubin 0.1 mg/dL (0.2-1.0) L 08/14/22 11:55 AST 18 U/L (15-37) 08/14/22 11:55 ALT 14 U/L (14-59) 08/14/22 11:55 Alkaline Phosphatase 142 U/L (46-116) H 08/14/22 11:55 Lactate Dehydrogenase 172 U/L (81-234) 08/14/22 11:55 Total Protein 6.9 g/dL (6.4-8.2) 08/14/22 11:55 Albumin 2.6 g/dL (3.4-5.0) L 08/14/22 11:55 Ur Random Creatinine 95.01 mg/dL 08/14/22 12:40 U Random Total Protein 42.0 mg/dL 08/14/22 12:40 U [place] Prot/Creat Ratio 0.44 08/14/22 12:40 Patient ABO/Rh A Positive 08/14/22 14:47 Antibody Screen NEGATIVE 08/14/22 14:47 Subjective Interval history since last seen: feeling some pressure but no involuntary urge to push. KH Results Hemoglobin/Hematocrit: Hgb 12.4 g/dL (11.2-15.7) 08/14/22 11:55 Hct 38.0 % (36.0-46.0) 08/14/22 11:55 Abnormal Lab Findings: Abnormal Labs 08/14/22 11:55 Creatinine 1.1 H Total Bilirubin 0.1 L Alkaline Phosphatase 142 H Albumin 2.6 L
[2022-08-15] MEDS: Penicillin G POT. 3,000,000 UNITS in Normal Saline 50 ML 100 UNITS IVPB (14:05)
[2022-08-15] MEDS: Oxytocin/Normal Saline 30 UNIT/500 ML BAG 95 UNITS IV (16:30)
--- NOTE | 2022-08-15 16:48 | W.OBDELIVERY ---
Date of service: 08/15/22 Time of Service: 16:48 OB Labor/ Delivery Information Baby A Delivery Delivery Method: Spontaneaous Presentation: Vertex Vertex Position: Left Occipital Anterior Cord Description-Baby A: 3 Vessels and Clamped/Cut Amniotic Fluid: Clear Estimated Blood Loss: 150cc Delivery Outcome: Liveborn Infant Complications: none Infant Transferred: Remains with Mother Note: Josue Marie presented 08/14 in the morning with prodromal labor. She was given therapeutic rest and has labs drawn that were consistent with Pre-eclampsia. Decision to deliver was made with consultation with Physician. Cervical ripening began over night. She was 2/80-90/-1 mid position with Jimenes score of 9 on 08/15/22 morning. Due to pain at that point and having had Nubain and vistaril and morphine she opted to get epidural and then begin pitocin augmentation. FHR tracing fluctuated between CAT I and CAT II throughout the labor due to occasional variable decelerations. At 1550 CNM was notified of prolonged FHR deceleration and attended patient. Anterior lip was noted and was able to be reduced. FHR recovered to 150-160 and oshea was discontinued. Second stage huddle was done. Patient began pushing effectively at 1554. At approximately 1602 there was FHR deceleration with head descent. Dr. Earl was notified and attended in case operative vaginal delivery was needed but patient has excellent expulsive efforts and FHR increased to 110 with pushing and 150 between pushing and there was caput noted. A live female was delivered SCOOTER over intact perineum at 1627. Baby was placed on blanket for drying then placed skin to skin. Cord was doubled clamped and cut by FOB after 5 minutes of delays cord clamping. 8 and 9. Placenta delivered via lund mechanism at 1633, intact. Fundus firmed with massage. Pitocin was started after baby was born for active management of third stage. Perineum was inspected again and found to be intact. sponge, needle and instrument counts were correct. Mother and baby are in satisfactory condition. Baby's weight 6lb 5.94 oz. Josue plans to formula feed her baby after education about benefit of breast milk and risks of formula feeding had been reviewed in . Expect normal PP course. Will monitor BP and repeat CBC and CMP in the morning. She is planning Nexplanon for contraception. Providers Nurse Perinatal Coordinator: Maria E Adams Nurse: Anu Powell Nurse: Inocencia Bianchi Labor/Delivery Information Number of Babies in Womb: 1 Steroids Given: None Reason Steroids Not Administered: N/A Group Beta Strep: Positive Antibiotics Administered: Yes Number of Doses of Antibiotics: 2 Rubella Status: Immune Blood Type: A+ Varicella Immunity: Nonimmune Maternal Complications: None Stages of Labor Onset of Labor Date: 08/14/22 Onset of Labor Time: 08:40 Complete Dilatation Date: 08/15/22 Complete Dilatation Time: 15:54 Labor - Stage 1 Duration: 31 hours and 14 minutes ROM Baby A: 08/15/22 ROM Baby A: 15:52 ROM Total Time- Baby A: [id number] Infant Delivery Date-Baby A: 08/15/22 Infant Delivery Time-Baby A: 16:27 Labor Stage 2 Duration: 33 minutes Placenta Delivery Date-Baby A: 08/15/22 Placenta Delivery Time-Baby A: 16:33 Labor-Stage 3 Duration: 6 minutes Total Length of Labor-Baby A: 31 hours and 47 minutes Placenta Cultured: No Placenta Status: Delivered Baby A Gender: Female Gestational Status: Term (39-41.6 wks) Gestational Age in Weeks/Days: 38 Weeks and 4 Days
--- NOTE | 2022-08-15 17:11 | ANES.NEURP_ITS ---
Epidural/Spinal Daily Note Date Performed: 08/15/22 Assessment Time: 15:10 Patient Location: Obstetrics Catheter Type in Place: Epidural Catheter Dressing Assessment: Dressing intact with good adherence Catheter Assessment: Catheter Labeled and Intact and Functioning Previous Catheter Depth Noted (cm): 10 Current Catheter Depth (cm): 10 Current Medication Infusion: Ropivacaine 0.1% with Fentanyl 2mcg/ml Current Maintenance Infusion Rate (ml/hour): 10 Current PCEA Bolus Dose (ml): 5 Current Pain Score (0-10): 8 Medication Infusion Stopped, Catheter Removal Planned: No New Bolus Given or Change in Infusion Made: Yes Standard Monitors Applied: Blood Pressure, SpO2 and See EMR for corresponding vital signs Epidural Provider Bolus (Indicate Dose Given): Total bolus dose given in 3-5 ml divided doses and Total Ropivacaine 0.1% with Fentanyl 2mcg/ml Given from pump. (ml) Dose:: 10 ml Additives (Indicate Dose Given ): None Infusion Medication: New Infusion Medication Medication Infusion: Ropivacaine 0.1% with Fentanyl 2mcg/ml New M aintenance Infusion Rate (ml/hour): 12 New PCEA Bolus Dose (ml): 5 Pain Score after Medication Change (0-10): 2 Daily Management Comments: Increased discomfort, bolus given and basal infusion increased with good relief. Completed By: Tammy Khanna
--- NOTE | 2022-08-15 17:40 | W.PM.OBPNV1 ---
Date of service: 08/15/22 Time of Service: 17:40 Assessment and Plan Assessment and plan (1) care following vaginal delivery: Status: Acute Assessment and plan: 1. Fundus is firm and normal lochia 2. Denies signs of LANGSTON, visual disturbance or epigastric pain (2) hypertension: Status: Acute Assessment and plan: 1. VS reviewed with Dr. Earl who is physician website optimization strategist. Plan to give Labetalol 100 mg PO twice daily starting now. 2. Patient has been educated on risk of PP pre-eclampsia and potential for eclampsia. I have encouraged minimal stimulation, rest, and have reviewed magnesium sulfate if needed. 3. Patient aware of need for anti hypertensive medication and agrees to plan. Subjective Subjective Interval history: Josue is feeling well but is very tired. I have requested only 1 person remain with her at this time so she can get some rest and less stimulation due to pre-eclampsia. Initial BP's PP have been elevated with most current 140/72 which is lowest since baby was born. Denies LANGSTON or visual changes. Exam Physical Exam Vital signs: Temp Pulse Resp BP Pulse Ox 97.9 F 0 L 16 140/72 98 08/15/22 07:38 08/15/22 17:38 08/15/22 10:15 08/15/22 17:34 08/15/22 10:15 Vital Signs Reviewed: Yes Constitutional Constitutional: no acute distress, average body habitus and cooperative HEENT Exam HEENT Exam: Normal Neck Exam Neck Exam: Normal (normal visual inspection) Respiratory Exam Respiratory Exam: Normal Cardiovascular Exam Cardiovascular Exam: Abnormal (elevated BP with systolic >140 since delivery) Abdominal Exam Abdomen: Other (normal exam) Fundal Exam Fundus: Below Umbilicus and Firm Comment: 100cc lochia with fundal massage, no clots and fundus firms quickly. Rectal Exam Rectal Exam: Not Done Exam Perineum: Intact and Normal Extremities Exam Extremity Exam: Edema (2+ pedal edema), Full ROM and Warm to Touch Back/Spine/Pelvis Exam Back Exam: Normal Skin Exam Skin Exam: Normal Neurological Exam Neurological Exam: Normal Psychiatric Exam Psychiatric Exam: Normal Results Hemoglobin/Hematocrit: Hgb 12.4 g/dL (11.2-15.7) 08/14/22 11:55 Hct 38.0 % (36.0-46.0) 08/14/22 11:55 Abnormal Lab Findings: Abnormal Labs 08/14/22 11:55 Creatinine 1.1 H Total Bilirubin 0.1 L Alkaline Phosphatase 142 H Albumin 2.6 L
[2022-08-15] MEDS: miSOPROStol 200 MCG TAB (18:05)
[2022-08-15] MEDS: Labetalol 100 MG TAB PO (19:02)
[2022-08-15] MEDS: Acetaminophen 325 MG TAB 650 MG PO (19:47)
[2022-08-15 19:52] LABS: Abs Immature Grans 0.09 10^3/uL (0.0-0.06); Absolute Monocyte Count 0.86 10^3/uL (0.1-0.8); Absolute Neutrophil Count 14.07 10^3/uL (1.2-6.7); Basophils % 0.3; Eosinophils % 0.5; HCT 38.7 % (36.0-46.0); HGB 12.8 g/dL (11.2-15.7); Immature Grans % 0.5; Lymphocytes % 12.2; MCH 28.2 pg (27.0-33.0); MCHC 33.1 % (32.0-36.0); MCV 85 fL (80-95); MPV 9.6 fL (8.0-11.0); Neutrophils % 81.5; Platelet Count 167 10^3/uL (130-400); RBC 4.54 10^6/uL (3.93-5.22); RDW 14.3 % (11.7-14.6); RDW-SD 44.2 fL; WBC 17.26 10^3/uL (4.4-10.8)
[2022-08-15 19:55] LABS: Absolute Basophil Count 0.05 10^3/uL (0.0-0.2); Absolute Eosinophil Count 0.09 10^3/uL (0.0-0.7); Absolute Lymphocyte Count 2.11 10^3/uL (1.2-3.4)
[2022-08-15 20:12] LABS: ALT 17 U/L (14-59); AST 21 U/L (15-37); Albumin 2.4 g/dL (3.4-5.0); Alkaline Phosphatase 141 U/L (46-116); Anion Gap 10.3 mmol/L (3-11); BUN 12 mg/dL (7-18); Bilirubin, Total 0.2 mg/dL (0.2-1.0); CO2 21.7 mmol/L (21.0-32.0); Chloride 107 mmol/L (98-107); Glucose 85 mg/dL (74-106); Potassium 3.9 mmol/L (3.5-5.1); Sodium 139 mmol/L (136-145); Total Protein 6.6 g/dL (6.4-8.2)
[2022-08-15 20:29] LABS: COVID-19 PCR Negative (Negative); Influenza A PCR Negative (Negative); Influenza B PCR Negative (Negative); RSV PCR Negative (Negative)
[2022-08-15 20:33] LABS: Source Nasopharynx
--- NOTE | 2022-08-15 21:25 | W.PM.OBPNV1 ---
Date of service: 08/15/22 Time of Service: 21:26 Assessment and Plan Assessment and plan (1) care following vaginal delivery: Status: Acute Assessment and plan: 1. Patient had repeat labs, reviewed with Dr. Earl who agrees that temp spike was likely due to misoprostol and no intervention required at this time unless temp elevates again above 38. 2. Labs WNL 3. Will encourage rest, hydration and ibuprofen/ tylenol as needed 4. Reassess in am or as needed. Subjective Subjective Interval history: Josue is feeling better. She had spiked a temp after taking misoprostol and had felt shaky. She has been voiding in large amounts and if bladder is empty her uterus remains below U. CBC and CMP repeated today and COVID/FLU/RSV culture done due to temperature. Exam Physical Exam Vital signs: Temp Pulse Resp BP Pulse Ox 101.2 F H 78 20 150/98 H 100 08/15/22 19:20 08/15/22 19:05 08/15/22 19:05 08/15/22 19:20 08/15/22 19:05 Vital Signs Reviewed: Yes Narrative: Most recent temperature below 101 Constitutional Constitutional: no acute distress HEENT Exam HEENT Exam: Normal Respiratory Exam Respiratory Exam: Normal Cardiovascular Exam Cardiovascular Exam: Normal Fundal Exam Fundus: Below Umbilicus and Firm Exam Perineum: Intact and Normal Extremities Exam Extremity Exam: Edema (pedal edema 1+) Results Hemoglobin/Hematocrit: Hgb 12.8 g/dL (11.2-15.7) 08/15/22 19:40 Hct 38.7 % (36.0-46.0) 08/15/22 19:40 Abnormal Lab Findings: Abnormal Labs 08/14/22 08/15/22 08/15/22 11:55 19:40 19:40 WBC 17.26 H Absolute Neutrophils 14.07 H Absolute Monocytes 0.86 H Creatinine 1.1 H Total Bilirubin 0.1 L Alkaline Phosphatase 142 H 141 H Albumin 2.6 L 2.4 L
[2022-08-16] VITALS (9 sets, daily range): BP systolic 116–142; BP diastolic 69–86; PULSE 81–90; RESP 16–18; TEMP 36.6–37; O2SAT 97–98
[2022-08-16 06:48] LABS: HCT 35.6 % (36.0-46.0); HGB 11.7 g/dL (11.2-15.7); MCH 28.3 pg (27.0-33.0); MCHC 32.9 % (32.0-36.0); MCV 86 fL (80-95); MPV 10.5 fL (8.0-11.0); Platelet Count 167 10^3/uL (130-400); RBC 4.13 10^6/uL (3.93-5.22); RDW 14.5 % (11.7-14.6); RDW-SD 45.3 fL; WBC 13.54 10^3/uL (4.4-10.8)
[2022-08-16 07:23] LABS: ALT 17 U/L (14-59); AST 30 U/L (15-37); Albumin 2.2 g/dL (3.4-5.0); Alkaline Phosphatase 123 U/L (46-116); Anion Gap 10.7 mmol/L (3-11); BUN 11 mg/dL (7-18); Bilirubin, Total 0.2 mg/dL (0.2-1.0); CO2 23.3 mmol/L (21.0-32.0); CREATININE 0.9 mg/dL (0.55-1.02); Calcium 8.7 mg/dL (8.5-10.1); Chloride 106 mmol/L (98-107); Estimated GFR 93.28 (mL/min/1.73m2); Glucose 75 mg/dL (74-106); Potassium 4.4 mmol/L (3.5-5.1); Sodium 140 mmol/L (136-145); Total Protein 6.4 g/dL (6.4-8.2)
[2022-08-16] MEDS: Labetalol 100 MG TAB PO ×2 (08:11→19:03)
[2022-08-16] MEDS: Docusate Sodium 100 MG CAP PO (08:11)
--- NOTE | 2022-08-16 08:50 | W.PM.OBPNV1 ---
Date of service: 08/16/22 Time of Service: 08:30 Assessment and Plan Assessment and plan (1) hypertension: Status: Acute Assessment and plan: 1. BP has stabilized on Labetalol 100 mg twice daily 2. No symptoms of pre-eclampsia 3. Labs stable and improving. (2) care following vaginal delivery: Status: Acute Assessment and plan: 1. fundus is firm and minimal lochia 2. Voiding without difficulty in adequate amounts 3. Continue present management. Subjective Subjective Interval history: Josue is feeling well this morning. Out of bed doing own care without difficulty and is looking forward to shower. Denies [place] or visual changes. Is not breast feeding or pumping breast milk. positive bonding noted. VS stable. [place] baby status: Bottle feeding well and Rooming in Exam Physical Exam Vital signs: Temp Pulse Resp BP Pulse Ox 98.6 F 88 18 132/82 100 08/16/22 00:39 08/16/22 06:42 08/16/22 04:20 08/16/22 06:42 08/15/22 19:05 Vital Signs Reviewed: Yes Constitutional Constitutional: no acute distress, average body habitus and cooperative HEENT Exam HEENT Exam: Normal Neck Exam Neck Exam: Normal (normal visual inspection) Respiratory Exam Respiratory Exam: Normal Cardiovascular Exam Cardiovascular Exam: Normal Abdominal Exam Abdomen: Other (normal exam) Fundal Exam Fundus: Below Umbilicus and Firm Comment: small lochia noted. Rectal Exam Rectal Exam: Not Done Exam Perineum: Intact and Normal Extremities Exam Extremity Exam: Normal (denies calf tenderness) and Full ROM Back/Spine/Pelvis Exam Back Exam: Normal Skin Exam Skin Exam: Normal Neurological Exam Neurological Exam: Normal Psychiatric Exam Psychiatric Exam: Normal Results Hemoglobin/Hematocrit: Hgb 11.7 g/dL (11.2-15.7) 08/16/22 06:25 Hct 35.6 % (36.0-46.0) L 08/16/22 06:25 Abnormal Lab Findings: Abnormal Labs 08/14/22 08/15/22 08/15/22 11:55 19:40 19:40 WBC 17.26 H Hct Absolute Neutrophils 14.07 H Absolute Monocytes 0.86 H Creatinine 1.1 H Total Bilirubin 0.1 L Alkaline Phosphatase 142 H 141 H Albumin 2.6 L 2.4 L 08/16/22 08/16/22 06:25 06:25 WBC 13.54 H Hct 35.6 L Absolute Neutrophils Absolute Monocytes Creatinine Total Bilirubin Alkaline Phosphatase 123 H Albumin 2.2 L
--- NOTE | 2022-08-16 09:33 | W.ANESPOSTOP ---
Postoperative Evaluation Date, Time and Location Date Performed: 08/16/22 Time Performed: 08:00 Patient Location: Obstetrics Vital Signs Most Recent Imported Vital Signs: Most Recent Vital Signs Temp Pulse Resp BP Pulse Ox 36.6 C 90 16 124/74 98 08/16/22 07:45 08/16/22 07:45 08/16/22 07:45 08/16/22 07:45 08/16/22 07:45 Pain Score Most Recent Pain Score: Most Recent Pain Score Pain Level [Abdomen] 0 08/16/22 07:45 Pain Level 5 08/15/22 06:41 Assessment Mental Status: Awake (Alert & Oriented to Patient Baseline) Airway and Respiratory Function: Patent airway with normal (patient baseline) respiratory exam Cardiovascular Function: Hemodynamically Stable Hydration Status: Adequately Hydrated Nausea & Vomiting: No Nausea or Vomiting Pain: Pain is tolerable per patient Peripheral Nerve Block: Patient did not receive a nerve block
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
== END 2022-08-16 19:10 | disposition home or self-care (01) | DRG 807 ==
LOC: OBS 08-16 10:34 → BCD 08-16 10:34
PROVIDERS: Advanced Practice Midwife; Admitting Provider Advanced Practice Midwife; PCP Nurse Practitioner Family; Visit Provider Advanced Practice Midwife
DX: O14.04 Mild to moderate pre-eclampsia, complicating childbirth; Z37.0 Single live birth; Z3A.38 38 weeks gestation of pregnancy; O63.0 Prolonged first stage (of labor); O99.824 Streptococcus B carrier state complicating childbirth; O99.344 Other mental disorders complicating childbirth; F32.A Depression, unspecified; O99.334 Smoking (tobacco) complicating childbirth; F17.290 Nicotine dependence, other tobacco product, uncomplicated; O76 Abnormality in fetal heart rate and rhythm complicating labor and delivery
CPT/HCPCS: 36415; 80053; 85027; 86850; 86900; 86901; 87637; 59025; 82565; 83615; 84156; 84550; 85025; J2270; J2540; J3490

== ENCOUNTER 2022-09-27 11:49 | Outpatient (REF) | payer MEDICAID, SELFPAY ==
--- NOTE | 2022-09-27 11:30 | PAPFT_PTH ---
PATIENT: Josue Marie LOC: [facility] U#:[id number] AGE/SX: 22/F ROOM: RE09/27/[address]: Maria E Adams CNM : 2000 BED: DIS: 09/27/2022 SPEC #: [id number] RECD: 09/27/22 17:47 STATUS: MEENU REQ #: [id number] KATALINA: 09/27/22 11:[address]: Maria E Adams DEPT: [facility] Cytology RECD BY: Sierra Baxter ENTERED: 09/27/22 17:47 SP TYPE: PAPFT OTHR DR: Nini Chambers Tissues: 1 - CX/ENDOCX FOR PAP SMEARS Procedures: PAP THIN PREP/UVM Screening Comments: [id number]
== END 2022-09-27 11:50 | disposition home or self-care (01) ==
LOC: LBN 11:49
PROVIDERS: PCP Nurse Practitioner Family; Visit Provider Advanced Practice Midwife
DX: Z12.4 Encounter for screening for malignant neoplasm of cervix (principal); R87.612 Low grade squamous intraepithelial lesion on cytologic smear of cervix (LGSIL)
CPT/HCPCS: 88142

== ENCOUNTER → 2022-12-18 01:03 | Outpatient (CLI) | payer MEDICAID, SELFPAY ==
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
== END ==
PROVIDERS: PCP Nurse Practitioner Family; Visit Provider Physician Assistant
DX: M79.601 Pain in right arm (principal)
CPT/HCPCS: 73080

== ENCOUNTER 2022-12-28 13:48 | Outpatient (REF) | payer MEDICAID, SELFPAY ==
[2023-01-01 22:23] LABS: Dog Dander IgE 1.38 kU/L (<0.70)
== END 2022-12-28 13:49 | disposition home or self-care (01) ==
LOC: NCHCN 13:48
PROVIDERS: Family Medicine; PCP Nurse Practitioner Family; Visit Provider Physical Medicine & Rehabilitation
DX: L50.8 Other urticaria (principal); Z01.82 Encounter for allergy testing
CPT/HCPCS: 86003

== ENCOUNTER 2023-10-04 01:38 | Outpatient (CLI) | payer MEDICAID, SELFPAY ==
[2023-10-04 12:43] LABS: Panorama Kit Sent via Fed Ex
[2023-10-04 12:51] LABS: Abs Immature Grans 0.11 10^3/uL (0.0-0.06); Absolute Basophil Count 0.06 10^3/uL (0.0-0.2); Absolute Eosinophil Count 0.19 10^3/uL (0.0-0.7); Absolute Monocyte Count 0.36 10^3/uL (0.1-0.8); Basophils % 0.6 %; Eosinophils % 1.9 %; HCT 39.9 % (36.0-46.0); HGB 13.3 g/dL (11.2-15.7); Immature Grans % 1.1 %; Lymphocytes % 21.4 %; MCH 28.4 pg (27.0-33.0); MCHC 33.3 % (32.0-36.0); MCV 85 fL (80-95); Monocytes % 3.7 %; Neutrophils % 71.3 %; Platelet Count 228 10^3/uL (130-400); RBC 4.69 10^6/uL (3.93-5.22); RDW 14.2 % (11.7-14.6); RDW-SD 43.6 fL; WBC 9.82 10^3/uL (4.4-10.8)
[2023-10-04 13:11] LABS: Glucose,1 Hr (Glucola) 96 mg/dL (80-140)
[2023-10-04 13:40] LABS: ALT 31 U/L (14-59); AST 20 U/L (15-37); Albumin 3.3 g/dL (3.4-5.0); Alkaline Phosphatase 71 U/L (46-116); BUN 8 mg/dL (7-18); CREATININE 0.8 mg/dL (0.55-1.02); Calcium 8.9 mg/dL (8.5-10.1); Chloride 103 mmol/L (98-107); Estimated GFR 106.77 (mL/min/1.73m2); Glucose 91 mg/dL (74-106); Potassium 3.6 mmol/L (3.5-5.1); Sodium 138 mmol/L (136-145); Total Protein 7.2 g/dL (6.4-8.2)
[2023-10-04 13:59] LABS: COMMENT (LAB VIEW ONLY) 185.07 mg/dL; PROTEIN 20.2 mg/dL
[2023-10-04 14:20] LABS: *AMPHETAMINES SCREEN URINE Negative (Negative); *BARBITURATES SCREEN URINE Negative (Negative); *BENZODIAZEPINES SCREEN URINE Negative (Negative); Cannabinoids THC Negative (Negative); Cocaine Screen,Urine Negative (Negative); METHADONE URINE SCREEN Negative (Negative); OPIATES URINE SCREEN Negative (Negative)
[2023-10-04 14:22] LABS: Tricyclic Antidepressants Negative (Negative)
[2023-10-07 09:39] LABS: Varicella IgG Antibody Negative (See Note)
[2023-10-07 09:43] LABS: Rubella IgG Ab (UVM) Positive (See Note)
[2023-10-07 09:43] LABS: Fentanyl Scr w/Rfx Confirm Negative ng/mL (<1)
[2023-10-07 10:44] LABS: Hepatitis C Ab w Rflx HCV PCR Negative (Negative)
[2023-10-07 10:53] LABS: HIV-1/2 Ag & Ab Screen Negative (Negative)
[2023-10-07 12:41] LABS: Hepatitis B Surface Ag Negative (Negative)
[2023-10-07 20:25] LABS: Syphilis IgG w/Reflex Nonreactive (Nonreactive)
[2023-10-10 09:22] LABS: Buprenorphine Negative ng/mL (Cutoff: 5.0); Norbuprenorphine Negative ng/mL (Cutoff: 2.5)
== END 2023-10-04 01:39 | disposition home or self-care (01) ==
LOC: LBO 01:38
PROVIDERS: Advanced Practice Midwife; PCP Nurse Practitioner Family; Visit Provider Advanced Practice Midwife
DX: Z34.90 Encounter for supervision of normal pregnancy, unspecified, unspecified trimester (principal); Z34.91 Encounter for supervision of normal pregnancy, unspecified, first trimester; B96.20 Unspecified Escherichia coli [E. coli] as the cause of diseases classified elsewhere; Z34.82 Encounter for supervision of other normal pregnancy, second trimester
CPT/HCPCS: 36415; 80053; 80307; 80348; 82950; 86787; 86803; 86850; 86900; 86901; 87077; 87340; 87389; 82565; 84156; 85025; 86762; 86780; 87086; 87186

== ENCOUNTER 2023-10-04 11:39 | Outpatient (REF) | payer MEDICAID, SELFPAY ==
--- NOTE | 2023-10-04 11:00 | PAPFT_PTH ---
PATIENT: Josue Marie LOC: [facility] U#:[id number] AGE/SX: 23/F ROOM: RE10/04/[address]: Juana Lu CNM : 2000 BED: DIS: 10/04/2023 SPEC #: [id number] RECD: 10/04/23 13:42 STATUS: MEENU REDouglas #: [id number] KATALINA: 10/04/23 11:[address]: Juana Lu DEPT: [facility] Cytology RECD BY: Sierra Baxter ENTERED: 10/04/23 13:42 SP TYPE: PAPFT OTHR DR: Nini Chambers Tissues: 1 - CX/ENDOCX FOR PAP SMEARS Procedures: PAP THIN PREP/UVM Screening Comments: [id number] (CHLAMYDIA/GC)
[2023-10-08 14:25] LABS: Chlamydia Result Negative (Negative); GC Result Negative (Negative)
== END 2023-10-04 11:40 | disposition home or self-care (01) ==
LOC: LBN 11:39
PROVIDERS: PCP Nurse Practitioner Family; Visit Provider Advanced Practice Midwife
DX: Z34.91 Encounter for supervision of normal pregnancy, unspecified, first trimester (principal); Z11.3 Encounter for screening for infections with a predominantly sexual mode of transmission
CPT/HCPCS: 87491; 87591; 88142

== ENCOUNTER 2023-10-27 07:22 | Outpatient (CLI) | payer MEDICAID, SELFPAY ==
[2023-10-27 09:04] VITALS: BP 124/65; PULSE 78; RESP 16; TEMP 36.7; O2SAT 98
--- NOTE | 2023-10-27 09:17 | NUR.NOTE ---
provider Evan Lu CNM at bedside for exam at approx 0918. Spec exam performed, urine sent, no further testing needed at this time. All questions/concerns answered/addressed. Pt verbalized understanding. Nursing Note:
--- NOTE | 2023-10-27 09:30 | W.PM.PROGNOT ---
Date of Service Date of service: 10/27/23 Time of Service: 09:30 Assessment and Plan Assessment and plan (1) Acute candidiasis of vulva and vagina: Status: Acute Assessment and plan: A: Vaginal jose, mid-treatment possible adverse reaction to Monistat Recently Rx'ed ATB's for e-coli UTI and dog-bite on hand P: Discontinue Monistat Diflucan 200 mg PO today, repeat in 48 hrs Urine C&S for JOHANNY f/up as scheduled with OB Provider (2) : Status: Acute Assessment and plan: FHT's detected, S=D, no abdominal tenderness Qualifiers: Weeks of gestation: 16 weeks Qualified Code(s): Z3A.16 - 16 weeks gestation of Subjective Subjective Interval history since last seen: vaginal itching, feels swollen and sensitive, has done 4 nights of Monistat and it felt even worse last night, maybe a bit better today Exam External Female Exam: normal external appearance (slightly irritated mucous membranes externally) Speculum Exam - Vagina: normal appearance of the vagina and other (vault with Monistat cream, no visible lesions) Speculum Exam - Cervix: normal appearance of the cervix Objective Last Vital Signs Temp 98.0 F 10/27/23 09:04 Pulse 78 10/27/23 09:04 Resp 16 10/27/23 09:04 BP 124/65 10/27/23 09:04 Pulse Ox 98 10/27/23 09:04 Time Spent with Patient Time Spent with Patient: <25 minutes Time was spent: preparing to see the patient(eg.review tests), obtaining and/or reviewing separately otained hiistory, ordering medications,tests, procedures, indepentently interpreting results and counseling the patient
[2023-10-28 12:47] VITALS: BP 128/79; PULSE 72
== END 2023-10-27 10:00 ==
LOC: BCD 07:29 → OBS 08:27
PROVIDERS: PCP Nurse Practitioner Family; Visit Provider Advanced Practice Midwife
DX: Z3A.16 16 weeks gestation of pregnancy; O23.592 Infection of other part of genital tract in pregnancy, second trimester; B37.31 Acute candidiasis of vulva and vagina
CPT/HCPCS: 87086

== ENCOUNTER 2023-11-01 13:38 | Outpatient (REF) | payer MEDICAID, SELFPAY | END 2023-11-01 13:39 | disposition home or self-care (01) | LOC: LBN 13:38 | PROVIDERS: PCP Nurse Practitioner Family; Visit Provider Advanced Practice Midwife | DX: O26.892 Other specified pregnancy related conditions, second trimester; N39.0 Urinary tract infection, site not specified; Z87.440 Personal history of urinary (tract) infections; Z3A.17 17 weeks gestation of pregnancy | CPT/HCPCS: 87086 ==

== ENCOUNTER 2023-11-04 09:08 | Emergency (ER) | payer MEDICAID, SELFPAY ==
[2023-11-04 09:10] VITALS: BP 144/72; PULSE 86; RESP 18; O2SAT 100
[2023-11-04] MEDS: Normal Saline 1,000 ML 1000 ML IV (09:28)
[2023-11-04 09:37] LABS: Abs Immature Grans 0.17 10^3/uL (0.0-0.06); Absolute Basophil Count 0.07 10^3/uL (0.0-0.2); Absolute Eosinophil Count 0.26 10^3/uL (0.0-0.7); Absolute Lymphocyte Count 2.04 10^3/uL (1.2-3.4); Absolute Monocyte Count 0.43 10^3/uL (0.1-0.8); Absolute Neutrophil Count 7.23 10^3/uL (1.2-6.7); Basophils % 0.7 %; Eosinophils % 2.5 %; HCT 39.6 % (36.0-46.0); HGB 13.3 g/dL (11.2-15.7); Immature Grans % 1.7 %; MCH 28.7 pg (27.0-33.0); MCHC 33.6 % (32.0-36.0); MCV 86 fL (80-95); MPV 8.9 fL (8.0-11.0); Monocytes % 4.2 %; Neutrophils % 70.9 %; Platelet Count 208 10^3/uL (130-400); RBC 4.63 10^6/uL (3.93-5.22); RDW 14.6 % (11.7-14.6); RDW-SD 45.3 fL
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
[2023-11-04 09:55] LABS: ALT 20 U/L (14-59); AST 12 U/L (15-37); Albumin 3.2 g/dL (3.4-5.0); Alkaline Phosphatase 74 U/L (46-116); Anion Gap 11.1 mmol/L (3-11); BUN 6 mg/dL (7-18); Bilirubin, Total 0.21 mg/dL (0.2-1.0); CO2 23.9 mmol/L (21.0-32.0); CREATININE 0.7 mg/dL (0.55-1.02); Calcium 8.6 mg/dL (8.5-10.1); Chloride 104 mmol/L (98-107); Estimated GFR 125.33 (mL/min/1.73m2); Glucose 92 mg/dL (74-106); Potassium 3.6 mmol/L (3.5-5.1); Sodium 139 mmol/L (136-145); Total Protein 7.1 g/dL (6.4-8.2)
[2023-11-04] MEDS: Acetaminophen 500 MG TAB 1000 MG PO (10:18)
[2023-11-04] MEDS: Ondansetron O.D.T. 4 MG TABEF PO (10:19)
[2023-11-04 11:42] LABS: Bilirubin Negative (Negative); Blood Negative (Negative); Clarity Sl Cloudy (Clear); Glucose Negative (Negative); Ketones Negative (Negative); Leukocyte Esterase Trace (Negative); Nitrite Negative (Negative); Urobilinogen 0.2 mg/dL (Up to 0.2)
[2023-11-04 11:53] LABS: Bacteria Few HPF (Negative); C & S Indicated? No/Sq. Contamination; Casts Negative LPF (Negative); Crystals Negative HPF (Negative); Epithelial Cells Many HPF (Negative); Mucus Negative (Negative); RBC 0-2 HPF (0-2)
== END 2023-11-04 12:41 | disposition home or self-care (01) ==
PROVIDERS: Emergency Provider Registered Nurse Emergency; PCP Nurse Practitioner Family
DX: O26.892 Other specified pregnancy related conditions, second trimester (principal); R51.9 Headache, unspecified; H53.8 Other visual disturbances; Z87.59 Personal history of other complications of pregnancy, childbirth and the puerperium
CPT/HCPCS: 80053; 96360; 99284; 81003; 81015; 85025; 99283

== ENCOUNTER 2023-11-22 00:09 | Outpatient (CLI) | payer MEDICAID, SELFPAY ==
--- NOTE | 2023-11-22 08:15 | DI.US_ITS ---
Exam(s) US OB 2-3 TRIMESTER EXAM: US OB 2-3 TRIMESTER CLINICAL HISTORY: anatomy survey,z34.90. TECHNIQUE: Transabdominal obstetrical ultrasound was performed. COMPARISON: US POCUS EXAM from 08/23/2023 FINDINGS: There is a single viable intrauterine gestation with cardiac activity identified-145 bpm. Amniotic fluid: There is a normal amount of amniotic fluid. Placental location: The placenta is posterior grade 1,with no evidence of placenta previa.Distant fro m the tip of the placenta to the internal cervical os is 7.8 cm. ANATOMY: A 3 vessel umbilical cord is seen. A four-chamber cardiac view was obtained. Right and left ventricular outflow tracts were imaged. There are no obvious abnormalities of the spinal column evident. There is no obvious abnormal ity of the anterior abdominal wall. stomach and urinary bladder are identified and there is no evidence of hydronephrosis. Adequate images of the facial profile and nose-lip region were not able to be obtained on today 's study. Dating parameters place this at approximately 20 weeks and 4 days gestational age. BPD measures 20 weeks and 3 days HC measures 20 weeks and 1 day AC measures 20 weeks and 0 days FL measures 21 weeks and 6 days Estimated weight is 376 gm-0 pounds, 13 ounces. Fetus is at the 86th percentile on the Hadlock scale. IMPRESSION:: Single viable intrauterine gestation which is approximately 20 weeks and 4 days gestati onal age, implying an RONALD of 04/06/2024. There are no obvious anomalies evident on today's study. However, patient needs to return for b mica imaging of the facial features including facial profile as well as upper lip and nose reg ions. The placenta is posterior with no evidence of placenta previa. There is a normal amount of amniotic fluid. DATA REPOSITORY:
== END 2023-11-22 00:29 ==
LOC: DI 00:09
PROVIDERS: PCP Nurse Practitioner Family; Visit Provider Advanced Practice Midwife
DX: Z34.92 Encounter for supervision of normal pregnancy, unspecified, second trimester (principal)
CPT/HCPCS: 76805

== ENCOUNTER 2023-12-27 15:30 | Outpatient (REF) | payer MEDICAID, SELFPAY ==
[2023-12-27 17:10] LABS: PROTEIN 57.6 mg/dL; Prot/Crea Ur Ratio 0.21
== END 2023-12-27 15:31 | disposition home or self-care (01) ==
LOC: LBN 15:30
PROVIDERS: PCP Nurse Practitioner Family; Visit Provider Advanced Practice Midwife
DX: R30.0 Dysuria (principal); O09.292 Supervision of pregnancy with other poor reproductive or obstetric history, second trimester
CPT/HCPCS: 82565; 84156; 87086; 87480; 87510; 87660

== ENCOUNTER 2024-01-10 02:41 | Outpatient (CLI) | payer MEDICAID, SELFPAY ==
[2024-01-10 14:32] LABS: Abs Immature Grans 0.23 10^3/uL (0.0-0.06); Absolute Basophil Count 0.06 10^3/uL (0.0-0.2); Absolute Eosinophil Count 0.22 10^3/uL (0.0-0.7); Absolute Lymphocyte Count 1.92 10^3/uL (1.2-3.4); Basophils % 0.5 %; Eosinophils % 1.9 %; HCT 37.2 % (36.0-46.0); HGB 12.4 g/dL (11.2-15.7); Lymphocytes % 16.6 %; MCH 29.7 pg (27.0-33.0); MCHC 33.3 % (32.0-36.0); MCV 89 fL (80-95); MPV 8.8 fL (8.0-11.0); Monocytes % 4.3 %; Neutrophils % 74.7 %; Platelet Count 208 10^3/uL (130-400); RBC 4.18 10^6/uL (3.93-5.22); RDW 14.6 % (11.7-14.6); RDW-SD 47.4 fL; WBC 11.56 10^3/uL (4.4-10.8)
[2024-01-10 14:34] LABS: Absolute Neutrophil Count 8.64 10^3/uL (1.2-6.7)
[2024-01-10 14:43] LABS: Glucose,1 Hr (Glucola) 148 mg/dL (80-140)
[2024-01-10 14:57] LABS: ALT 19 U/L (14-59); AST 15 U/L (15-37); Albumin 2.7 g/dL (3.4-5.0); Alkaline Phosphatase 90 U/L (46-116); Anion Gap 9.3 mmol/L (3-11); BUN 9 mg/dL (7-18); Bilirubin, Total 0.29 mg/dL (0.2-1.0); CO2 23.7 mmol/L (21.0-32.0); CREATININE 0.7 mg/dL (0.55-1.02); Calcium 9.1 mg/dL (8.5-10.1); Chloride 101 mmol/L (98-107); Estimated GFR 125.33 (mL/min/1.73m2); Glucose 148 mg/dL (74-106); Potassium 3.3 mmol/L (3.5-5.1); Sodium 134 mmol/L (136-145); TSH (W/Ref FT4) 1.57 uIU/mL (0.36-3.74); Total Protein 6.7 g/dL (6.4-8.2); Uric Acid 3.2 mg/dL (2.6-6.0)
[2024-01-13 11:05] LABS: Lyme Ab w Rflx to Lyme Confirm Negative (Negative)
[2024-01-13 14:11] LABS: ANA Interpretation Negative (Negative)
[2024-01-15 08:45] LABS: Anaplasma phagocytophilum Negative (Negative); B. miyamotoi PCR Negative (Negative); Babesia divergens/MO-1 Negative (Negative); Babesia duncani Negative (Negative); Babesia microti Negative (Negative); Ehrlichia chaffeensis Negative (Negative); Ehrlichia ewingii/canis Negative (Negative); Ehrlichia muris eauclairensis Negative (Negative)
== END 2024-01-10 02:42 | disposition home or self-care (01) ==
LOC: LBO 02:43
PROVIDERS: PCP Nurse Practitioner Family; Visit Provider Advanced Practice Midwife
DX: Z34.92 Encounter for supervision of normal pregnancy, unspecified, second trimester (principal); M79.2 Neuralgia and neuritis, unspecified; O26.892 Other specified pregnancy related conditions, second trimester; R51.9 Headache, unspecified; R53.83 Other fatigue; R42 Dizziness and giddiness
CPT/HCPCS: 36415; 80053; 82950; 87798; 84443; 84550; 85025; 86038; 86618

== ENCOUNTER 2024-01-21 03:11 | Outpatient (CLI) | payer MEDICAID, SELFPAY ==
[2024-01-21 09:32] LABS: COMMENT (LAB VIEW ONLY) 111.54 mg/dL; PROTEIN 38.7 mg/dL; Prot/Crea Ur Ratio 0.34
[2024-01-21 11:06] LABS: Glucose 1 Hour 146 mg/dL
[2024-01-21 12:56] LABS: Lab Add On Test DONE
[2024-01-21 13:08] LABS: ALT 22 U/L (14-59); AST 17 U/L (15-37); Albumin 2.7 g/dL (3.4-5.0); Alkaline Phosphatase 96 U/L (46-116); Anion Gap 8.4 mmol/L (3-11); BUN 7 mg/dL (7-18); Bilirubin, Total 0.29 mg/dL (0.2-1.0); CO2 24.6 mmol/L (21.0-32.0); CREATININE 0.7 mg/dL (0.55-1.02); Chloride 106 mmol/L (98-107); Estimated GFR 125.33 (mL/min/1.73m2); Glucose 67 mg/dL (74-106); Potassium 3.9 mmol/L (3.5-5.1); Sodium 139 mmol/L (136-145)
[2024-01-21 13:36] LABS: Glucose 3 Hour 68 mg/dL
== END 2024-01-21 03:12 | disposition home or self-care (01) ==
LOC: LBO 03:11
PROVIDERS: Advanced Practice Midwife; PCP Nurse Practitioner Family; Visit Provider Advanced Practice Midwife
DX: R73.09 Other abnormal glucose (principal); O09.293 Supervision of pregnancy with other poor reproductive or obstetric history, third trimester; Z87.59 Personal history of other complications of pregnancy, childbirth and the puerperium
CPT/HCPCS: 36415; 80053; 82565; 82951; 84156

== ENCOUNTER 2024-01-24 09:50 | Outpatient (REF) | payer MEDICAID, SELFPAY ==
[2024-01-24 11:02] LABS: COMMENT (LAB VIEW ONLY) 240.01 mg/dL; PROTEIN 46.4 mg/dL; Prot/Crea Ur Ratio 0.19
[2024-01-24 13:03] LABS: Lab Add On Test DONE
[2024-01-24 14:09] LABS: *AMPHETAMINES SCREEN URINE Negative (Negative); *BARBITURATES SCREEN URINE Negative (Negative); *BENZODIAZEPINES SCREEN URINE Negative (Negative); Cannabinoids THC Negative (Negative); Cocaine Screen,Urine Negative (Negative); METHADONE URINE SCREEN Negative (Negative); OPIATES URINE SCREEN Negative (Negative)
[2024-01-24 14:10] LABS: Tricyclic Antidepressants Negative (Negative)
[2024-01-27 10:19] LABS: Fentanyl Scr w/Rfx Confirm Negative ng/mL (<1)
[2024-01-31 08:45] LABS: Buprenorphine Negative ng/mL (Cutoff: 5.0)
== END 2024-01-24 09:51 | disposition home or self-care (01) ==
LOC: LBN 09:50
PROVIDERS: PCP Nurse Practitioner Family; Visit Provider Advanced Practice Midwife
DX: Z34.93 Encounter for supervision of normal pregnancy, unspecified, third trimester (principal); F17.290 Nicotine dependence, other tobacco product, uncomplicated; Z3A.29 29 weeks gestation of pregnancy
CPT/HCPCS: 80307; 80348; 82565; 84156

== ENCOUNTER 2024-02-14 01:00 | Outpatient (CLI) | payer MEDICAID, SELFPAY ==
--- NOTE | 2024-02-14 06:45 | DI.US_ITS ---
Exam(s) US OB TIFFANY WEIGHT EXAM: US OB TIFFANY WEIGHT CLINICAL HISTORY: interval growth,h/o pre eclampsia,Z3A.16. TECHNIQUE: Transabdominal obstetrical ultrasound performed. COMPARISON: US US OB 2-3 TRIMESTER from 11/22/2023 US US OB F/U FACIAL/LVOT/RVOT from 12/06/2023 FINDINGS:: Number of fetuses: 1 position: BREECH Placental location: POSTERIOR No evidence of previa. BIOMETRIC DATA: BPD: 8.64cm, 34weeks 6days HC: 31.71cm, 35weeks 5days AC: 30.72cm, 34weeks 5days FL: 6.26cm, 32weeks 3days EFW: 2,365.45g, 5lb 5.14oz, 95.2% Composite Age: 34weeks 3days RONALD: 03/24/2024 Heart Rate: 155bpm Amniotic fluid index: 23.72cm, upper normal range. IMPRESSION: size and weight are above the expected range by over 2 weeks. Upper normal TIFFANY.. DATA REPOSITORY:
== END 2024-02-14 01:20 ==
LOC: DI 01:00
PROVIDERS: PCP Nurse Practitioner Family; Visit Provider Advanced Practice Midwife
DX: O09.293 Supervision of pregnancy with other poor reproductive or obstetric history, third trimester (principal); Z3A.31 31 weeks gestation of pregnancy
CPT/HCPCS: 76816

== ENCOUNTER 2024-03-06 01:34 | Outpatient (CLI) | payer MEDICAID, SELFPAY ==
--- NOTE | 2024-03-06 07:27 | DI.US_ITS ---
Exam(s) US OB TIFFANY WEIGHT EXAM: US OB TIFFANY WEIGHT CLINICAL HISTORY: size greater than dates,Z3A.16. TECHNIQUE: Transabdominal obstetrical ultrasound performed. COMPARISON: US US OB 2-3 TRIMESTER from 11/22/2023 US US OB F/U FACIAL/LVOT/RVOT from 12/06/2023 US US OB TIFFANY WEIGHT from 02/14/2024 FINDINGS:: Number of fetuses: 1 position: Cephalic Placental location: Posterior fundal, grade 2. no evidence of previa. BIOMETRIC DATA: BPD: 92 mm, 37+ 2 weeks HC: 348 mm, 40+ 3 weeks AC: 352 mm, 39+ 1 weeks FL: 69 mm, 30 5+2 weeks EFW: 3411, greater than 97th percentile, Composite Age: 38+ 0 weeks RONALD: 20 March 2024 Heart Rate: 164 Amniotic fluid index: 25. Upper limits of normal. IMPRESSION: size and weight are above the expected range by 3 weeks. TIFFANY at upper normal limits of normal. DATA REPOSITORY:
== END 2024-03-06 01:54 ==
LOC: DI 01:34
PROVIDERS: PCP Nurse Practitioner Family; Visit Provider Advanced Practice Midwife
DX: O40.3XX0 Polyhydramnios, third trimester, not applicable or unspecified (principal); Z3A.36 36 weeks gestation of pregnancy
CPT/HCPCS: 76816

== ENCOUNTER 2024-03-06 08:31 | Outpatient (CLI) | payer MEDICAID, SELFPAY ==
[2024-03-06 14:29] VITALS: BP 129/72; PULSE 86
[2024-03-06 14:41] VITALS: BP 129/72; PULSE 86; TEMP 36.4
--- NOTE | 2024-03-06 16:52 | W.OBNST ---
Date of service: 03/06/24 Time of Service: 16:53 NST Evaluation Reason for NST Reasons for Nonstress Test: POLYHYDRAMNIOS Gestational Age Gestational Age in Weeks and Days: 35 Weeks and 0Days Test and Monitor Explained Test/Monitor Explained: Test Explained, Monitor Explained and Patient Verbalized Understanding Vital Signs Blood Pressure: 129/72 Pulse: 86 Temperature: 97.5 F NST Information Date on Monitor: 03/06/24 Time on Monitor: 13:50 Date off Monitor: 03/06/24 Time off Monitor: 14:27 Total Time on Monitor: 37 NST Interventions: None Contraction Frequency: None NST Evaluation Patient States Movement: Present FHR Baseline: 135 Variability: Moderate 6-25 bpm Accelerations: 15x15 Decelerations: None NST Results: Reactive Note Ultrasound Done: N/A. NST Note Note: Josue here for NST for polyhydramnios. US today shows TIFFANY 25. Reactive NST. NST scheduled in 1 week. NST Reviewed and Verified by: Maria E Yang
[2024-03-06 16:53] VITALS: BP 129/72; PULSE 86; TEMP 36.4
== END 2024-03-06 16:15 ==
LOC: BCD 08:34 → OBS 13:57
PROVIDERS: PCP Nurse Practitioner Family; Visit Provider Advanced Practice Midwife
DX: O40.3XX0 Polyhydramnios, third trimester, not applicable or unspecified (principal); Z3A.35 35 weeks gestation of pregnancy
CPT/HCPCS: 59025

== ENCOUNTER 2024-03-20 09:18 | Outpatient (CLI) | payer MEDICAID, SELFPAY ==
[2024-03-20 12:07] VITALS: BP 126/71; PULSE 85; TEMP 36.9
[2024-03-20 12:30] VITALS: BP 126/71; PULSE 85
--- NOTE | 2024-03-20 17:58 | W.OBNST ---
Date of service: 03/20/24 Time of Service: 12:00 NST Evaluation Reason for NST Reasons for Nonstress Test: POLYHYDRAMNIOS Gestational Age Gestational Age in Weeks and Days: 37 Weeks and 0Days Test and Monitor Explained Test/Monitor Explained: Test Explained, Monitor Explained and Patient Verbalized Understanding Vital Signs Blood Pressure: 126/71 Pulse: 85 Temperature: 98.4 F NST Information Date on Monitor: 03/20/24 Time on Monitor: 12:10 Date off Monitor: 03/20/24 Time off Monitor: 12:55 Total Time on Monitor: 45 NST Interventions: PO Hydration Contraction Frequency: 0 NST Evaluation Patient States Movement: Present FHR Baseline: 125 Variability: Moderate 6-25 bpm Accelerations: 15x15 Decelerations: None NST Results: Reactive Note Ultrasound Done: TIFFANY Indication: Polyhydraminos Total TIFFANY: 24.7 Other Pertinent Findings: Heart Rate (116 bpm), Presentation (cephalic, ROP) and Placental Location (posterior) Coding for TIFFANY w/NST: Completed Exam. NST Note Note: TIFFANY is stable at 25, RTO 1 wk for next NST, no TIFFANY needed, Pt consents to 39 wk IOL, scheduled for 04/06/24 NST Reviewed and Verified by: Juana Lu
[2024-03-20 18:00] VITALS: BP 126/71; PULSE 85; TEMP 36.9
--- NOTE | 2024-03-26 19:09 | W.OBNST ---
Date of service: 03/20/24 Time of Service: 13:00 NST Evaluation Reason for NST Reasons for Nonstress Test: POLYHYDRAMNIOS Gestational Age Gestational Age in Weeks and Days: 37 Weeks and 0Days Test and Monitor Explained Test/Monitor Explained: Test Explained, Monitor Explained and Patient Verbalized Understanding Vital Signs Blood Pressure: 126/71 Pulse: 85 Temperature: 98.4 F NST Information Date on Monitor: 03/20/24 Time on Monitor: 12:10 Date off Monitor: 03/20/24 Time off Monitor: 12:55 Total Time on Monitor: 45 NST Interventions: PO Hydration Contraction Frequency: 0 NST Evaluation Patient States Movement: Present FHR Baseline: 125 Variability: Moderate 6-25 bpm Accelerations: 15x15 Decelerations: None NST Results: Reactive Note Ultrasound Done: N/A. NST Note NST Reviewed and Verified by: Juana Lu
[2024-03-26 19:10] VITALS: BP 126/71; PULSE 85; TEMP 36.9
== END 2024-03-20 13:15 | disposition other institution (70) ==
LOC: BCD 09:19 → OBS 12:06
PROVIDERS: PCP Nurse Practitioner Family; Visit Provider Advanced Practice Midwife
DX: O40.3XX0 Polyhydramnios, third trimester, not applicable or unspecified (principal); Z3A.37 37 weeks gestation of pregnancy
CPT/HCPCS: 59025; 76815; 87081

== ENCOUNTER 2024-03-27 08:49 | Outpatient (CLI) | payer MEDICAID, SELFPAY ==
[2024-03-27 13:07] VITALS: BP 120/71; PULSE 86; TEMP 36.8
[2024-03-27 13:11] VITALS: BP 120/71; PULSE 86
--- NOTE | 2024-03-27 14:28 | PDOC.NST_ITS ---
Date of service: 03/27/24 Time of Service: 14:28 NST Evaluation Reason for NST Reasons for Nonstress Test: POLYHYDRAMNIOS Gestational Age Gestational Age in Weeks and Days: 38 Weeks and 0Days Test and Monitor Explained Test/Monitor Explained: Test Explained and Monitor Explained Vital Signs Blood Pressure: 120/71 Pulse: 86 Temperature: 98.2 F Urine Results Urine Protein: Negative Urine Ketones: Negative Urine Glucose: Negative Urine Blood: Negative NST Information Date on Monitor: 03/27/24 Time on Monitor: 13:06 Date off Monitor: 03/27/24 Time off Monitor: 13:41 Total Time on Monitor: 35 NST Interventions: None NST Evaluation Patient States Movement: Present FHR Baseline: 125 Variability: Moderate 6-25 bpm Accelerations: 15x15 Decelerations: None NST Results: Reactive Note Ultrasound Done: N/A. NST Note Note: Josue s here for NST Reactive nST. She requests cervical exam. cervix post/ cl osed/ soft/ -3. Signs of labor reviewed. RTO in 1 weeks for NST. IOL planned for 04/06 and that was discussed. NST Reviewed and Verified by: Maria E Yang
[2024-03-27 14:30] VITALS: BP 120/71; PULSE 86; TEMP 36.8
== END 2024-03-27 14:00 ==
LOC: BCD 08:51 → OBS 13:02
PROVIDERS: PCP Nurse Practitioner Family; Visit Provider Advanced Practice Midwife
DX: O40.3XX0 Polyhydramnios, third trimester, not applicable or unspecified (principal); Z3A.38 38 weeks gestation of pregnancy
CPT/HCPCS: 59025

== ENCOUNTER 2024-04-02 12:38 | Inpatient (IN) | payer MEDICAID, SELFPAY ==
[2024-04-02] VITALS (78 sets, daily range): BP systolic 100–153; BP diastolic 57–82; PULSE 73–123; RESP 17–19; TEMP 36.1–37.2; O2SAT 97–100; BMI 32.5
[2024-04-02 12:37] LABS: ROM Plus Positive
[2024-04-02] MEDS: Normal Saline Flush 10 ML SYR IVP ×3 (13:10→16:47)
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
[2024-04-02 13:40] LABS: HCT 35.6 % (36.0-46.0); HGB 11.4 g/dL (11.2-15.7); MCH 25.5 pg (27.0-33.0); MCV 80 fL (80-95); MPV 9.1 fL (8.0-11.0); Platelet Count 232 10^3/uL (130-400); RBC 4.47 10^6/uL (3.93-5.22); RDW 15.5 % (11.7-14.6); RDW-SD 44.2 fL; WBC 14.43 10^3/uL (4.4-10.8)
[2024-04-02] MEDS: Lactated Ringers 1,000 ML 150 ML IV (14:58)
--- NOTE | 2024-04-02 15:13 | W.PM.OBNL1 ---
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 Patient to rest after epidural in place anticipated Objective Abnormal lab results 04/02/24 Range/Units 13:28 WBC 14.43 H (4.4-10.8) 10^3/uL Hct 35.6 L (36.0-46.0) % MCH 25.5 L (27.0-33.0) pg RDW 15.5 H (11.7-14.6) % Temp Pulse BP Pulse Ox 97.5 F L 89 135/78 100 04/02/24 13:41 04/02/24 15:12 04/02/24 15:06 04/02/24 15:12 Laboratory Results WBC 14.43 10^3/uL (4.4-10.8) H 04/02/24 13:28 RBC 4.47 10^6/uL (3.93-5.22) 04/02/24 13:28 Hgb 11.4 g/dL (11.2-15.7) 04/02/24 13:28 Hct 35.6 % (36.0-46.0) L 04/02/24 13:28 MCV 80 fL (80-95) 04/02/24 13:28 MCH 25.5 pg (27.0-33.0) L 04/02/24 13:28 MCHC 32.0 % (32.0-36.0) 04/02/24 13:28 RDW 15.5 % (11.7-14.6) H 04/02/24 13:28 Plt Count 232 10^3/uL (130-400) 04/02/24 13:28 MPV 9.1 fL (8.0-11.0) 04/02/24 13:28 Membranes Rupture Positive 04/02/24 12:10 ABO/Rh A Positive 04/02/24 13:28 Antibody Screen NEGATIVE 04/02/24 13:28 Objective Narrative Objective Narrative: at 38w6d PROM clear fluid Spontaneous Labor Cat 1 FHR Subjective Interval history since last seen: Patient requesting epidural, Maria E Deras CNM repeat the SVE and patient was found to have made change to 4/100/-2. She has been using Nitrous oxide without significant relief and is not requesting an epidural. STAMPING MILL TENDER notified. Results Hemoglobin/Hematocrit: Hgb 11.4 g/dL (11.2-15.7) 04/02/24 13:28 Hct 35.6 % (36.0-46.0) L 04/02/24 13:28 Abnormal Lab Findings: Abnormal Labs 04/02/24 13:28 WBC 14.43 H Hct 35.6 L MCH 25.5 L RDW 15.5 H
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
--- NOTE | 2024-04-02 16:29 | W.ANESNEU ---
Epidural/Spinal Catheter Date Performed: 04/02/24 Procedure Start: 15:05 Procedure Stop: 15:15 Requesting Provider: Maria E Yang Procedure Location: Obstetrics Reason Performed: Labor Epidural Standard Monitors Applied: Blood Pressure, SpO2 and See EMR for corresponding vital signs Patient Position: Sitting Sedation Given (Indicate Dose Given): No Sedation given Patient Mental Status: Awake Sterility: Hand Hygiene, Surgical Cap, Surgical Mask, Sterile Gloves, Sterile Drape/Sheet and Chlorhexidine Procedure Location: Other (L2/3, L3/4, L4/5) Epidural Needle: Tuohy 18 Gauge Needle Length: 3.5 Inch Needle Approach: Midline Epidural Procedure: Skin Prepped, Sterile Drape Placed, 1% Lidocaine to skin and subcutaneous tissue with 25G needle, Tuohy Needle placed, JN to Saline Used, Epidural Catheter Placed, Negative Heme, Negative CSF Flow and Tuohy Needle Removed Catheter Placed?: Catheter Not Placed Paresthesia: None Ultrasound: Not Used Number of Attempts (See previous attempts in note section): 3 Procedure Tolerated: No Complications and Patient tolerated well Procedure Outcome: Unsuccessful Procedure Comment:: Attempt x3 interspaces with position changes in between each interspace. JN at each level with inability to thread catheter during each attempt, resistance met and procedure stopped. Patient tolerated the procedure well. Intrathecal offered, patient declined. STAS Mckeon attempt at first interspace. Performed By: Sharda Mackay
[2024-04-02] MEDS: fentaNYL 100 MCG/2 ML VIAL 50 MCG IVP (16:48)
--- NOTE | 2024-04-02 16:58 | W.PM.OBNL1 ---
Date of service: 04/02/24 Time of Service: 16:58 Pelvic Exam Dilation: 6 Effacement (%): 100 station: -2 Contractions Contraction Frequency(min): q2-4 Fetus A Monitor: Doppler Heart Rate Baseline: 132 Accelerations: Absent Decelerations: None Assessment and Plan Assessment and plan (1) PROM with onset of labor within 24 hours of rupture: Status: Acute Assessment and plan: Active Labor Fentanyl 50mg given Unsuccessful epidural attempt anticipated Objective Abnormal lab results 04/02/24 Range/Units 13:28 WBC 14.43 H (4.4-10.8) 10^3/uL Hct 35.6 L (36.0-46.0) % MCH 25.5 L (27.0-33.0) pg RDW 15.5 H (11.7-14.6) % Temp Pulse BP Pulse Ox 97.5 F L 123 H 100/59 L 99 04/02/24 16:05 04/02/24 16:27 04/02/24 16:27 04/02/24 16:18 Laboratory Results WBC 14.43 10^3/uL (4.4-10.8) H 04/02/24 13:28 RBC 4.47 10^6/uL (3.93-5.22) 04/02/24 13:28 Hgb 11.4 g/dL (11.2-15.7) 04/02/24 13:28 Hct 35.6 % (36.0-46.0) L 04/02/24 13:28 MCV 80 fL (80-95) 04/02/24 13:28 MCH 25.5 pg (27.0-33.0) L 04/02/24 13:28 MCHC 32.0 % (32.0-36.0) 04/02/24 13:28 RDW 15.5 % (11.7-14.6) H 04/02/24 13:28 Plt Count 232 10^3/uL (130-400) 04/02/24 13:28 MPV 9.1 fL (8.0-11.0) 04/02/24 13:28 Membranes Rupture Positive 04/02/24 12:10 ABO/Rh A Positive 04/02/24 13:28 Antibody Screen NEGATIVE 04/02/24 13:28 Subjective Interval history since last seen: EVENT PROMOTIONS COORDINATOR unable to place epidural after multiple attempts. Pt using N202 throughout placement. She had a difficult epidural placement in her first labor also. Pt now in labor tub and complaining of urge to poop. SVE unchanged from previous exam of /-2 at 1621. 50mcg IVP Fentanyl given. Results Hemoglobin/Hematocrit: Hgb 11.4 g/dL (11.2-15.7) 04/02/24 13:28 Hct 35.6 % (36.0-46.0) L 04/02/24 13:28 Abnormal Lab Findings: Abnormal Labs 04/02/24 13:28 WBC 14.43 H Hct 35.6 L MCH 25.5 L RDW 15.5 H
[2024-04-02] MEDS: Oxytocin 10 UNITS/ML VIAL IM (18:37)
[2024-04-02] MEDS: Acetaminophen 325 MG TAB (18:51)
[2024-04-02] MEDS: Ibuprofen 600 MG TAB (18:52)
[2024-04-02] MEDS: Methylergonovine 0.2 MG/ML VIAL (18:53)
--- NOTE | 2024-04-02 19:01 | W.OBDELIVERY ---
Date of service: 04/02/24 Time of Service: 19:02 OB Labor/ Delivery Information Baby A Delivery Delivery Method: Spontaneaous Presentation: Vertex Cephalic Position: Vertex Vertex Position: Right Occipital Anterior Cord Description-Baby A: 3 Vessels Amniotic Fluid: Clear Estimated Blood Loss: 90 Delivery Outcome: Liveborn Complications: none Infant Transferred: Remains with Mother Note: FHTs Cat 1 during first stage of labor. FHTs Cat1 in second stage. She progressed to full dilation and began pushing in the tub. Second stage huddle was done. Spontaneous delivery of male infant delivered in AISHWARYA position. Baby was placed on mother's abdomen and dried and stimulated. Spontaneous cry. Cord was clamped and cut by Charles GAYTAN. Mother helped out of the tub and into labor bed. The placenta delivered spontaneously and appears to by intact with a three vessel cord. Pitocin IM was administered delivery of the placenta. The perineum was inspected and intact, periurethral shear on right side. Fundal massage released few small clots, bladder drained with straight catheter for 75cc clear urine. Methergine given IM for continued tricked of lochia. The baby to Charles for skin to skin, mom plans to formula feed. After delivery, Mother and baby and father of the baby were stable and bonding well in the delivery room and there were no complications. Providers Nurse Control Systems Developer: Tammy Nunez Equipment Mechanic: Sharda Mackay Nurse: Tyler Noriega Nurse: Amaris Mancia Other: Maria E Yang Labor/Delivery Information Number of Babies in Womb: 1 Steroids Given: None Reason Steroids Not Administered: N/A Group Beta Strep: Negative Rubella Status: Immune Blood Type: A+ Varicella Immunity: Nonimmune Shoulder Dystocia: No Stages of Labor Onset of Labor Date: 04/02/24 Onset of Labor Time: 10:30 Complete Dilatation Date: 04/02/24 Complete Dilatation Time: 18:15 Labor - Stage 1 Duration: 7 hours and 45 minutes ROM Baby A: 04/02/24 ROM Baby A: 10:30 ROM Total Time- Baby A: [id number] Infant Delivery Date-Baby A: 04/02/24 Delivery Time-Baby A: 18:19 Labor Stage 2 Duration: 4 minutes Placenta Delivery Date-Baby A: 04/02/24 Placenta Delivery Time-Baby A: 18:22 Labor-Stage 3 Duration: 3 minutes Total Length of Labor-Baby A: 7 hours and 49 minutes Placenta Status: Delivered Baby A Gender: Male Gestational Status: Early Term (37-38.6 wks) Gestational Age in Weeks/Days: 38 Weeks and 6 Days weight: 9 lb 7.325 oz Length-Baby A: 21.25 in Head Circumference-Baby A: 14.5 in Score-1 Minute Interval(Baby A) Heart Rate-1 minute: 100 BPM or Greater Respiratory Effort- 1 minute: Spontaneous/Strong Cry Muscle Tone-1 minute: Active Movement Reflex Response-1 minute: Prompt Response Color-1 minute: Bluish Hands or Feet Total Score-1 minute: 9 Score-5 Minute Interval(Baby A) Heart Rate- 5 minute: 100 BPM or Greater Respiratory Effort-5 minute: Spontaneous/Strong Cry Muscle Tone-5 minute: Active Movement Reflex Response-5 minute: Prompt Response Color-5 minute: Bluish Hands or Feet Total Score- 5 minute: 9
[2024-04-02] MEDS: Dibucaine 1% 28 GM TUBE TP (21:06)
[2024-04-02] MEDS: Hamamelis Leaf/Glycerin 100 EACH BOX PR (21:06)
[2024-04-02 21:46] LABS: *AMPHETAMINES SCREEN URINE Negative (Negative); *BARBITURATES SCREEN URINE Negative (Negative); *BENZODIAZEPINES SCREEN URINE Negative (Negative); Cannabinoids THC Negative (Negative); Cocaine Screen,Urine Negative (Negative); METHADONE URINE SCREEN Negative (Negative); OPIATES URINE SCREEN Negative (Negative)
[2024-04-02 21:47] LABS: Tricyclic Antidepressants Negative (Negative)
[2024-04-02] MEDS: Acetaminophen 325 MG TAB 650 MG PO (23:31)
[2024-04-03 07:38] LABS: HCT 33.9 % (36.0-46.0); HGB 10.9 g/dL (11.2-15.7); MCH 25.4 pg (27.0-33.0); MCHC 32.2 % (32.0-36.0); MCV 79 fL (80-95); MPV 9.4 fL (8.0-11.0); Platelet Count 220 10^3/uL (130-400); RBC 4.29 10^6/uL (3.93-5.22); RDW 15.7 % (11.7-14.6); RDW-SD 44.4 fL; WBC 16.45 10^3/uL (4.4-10.8)
[2024-04-03] MEDS: Ibuprofen 600 MG TAB PO (08:43)
[2024-04-03] MEDS: Acetaminophen 325 MG TAB 650 MG PO (08:43)
[2024-04-03 08:53] VITALS: BP 109/69; PULSE 81; RESP 18; TEMP 36.6; O2SAT 96
[2024-04-03] MEDS: ETONOGESTREL 68 MG IMPLANT SC (12:30)
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
[2024-04-03] MEDS: Hamamelis Leaf/Glycerin 100 EACH BOX PR (13:52)
[2024-04-06 11:45] LABS: Fentanyl Scr w/Rfx Confirm Negative ng/mL (<1)
== END 2024-04-03 19:45 | disposition home or self-care (01) | DRG 807 ==
LOC: BCD 13:38 → OBS 13:38
PROVIDERS: Advanced Practice Midwife; Admitting Provider Advanced Practice Midwife; PCP Nurse Practitioner Family; Visit Provider Advanced Practice Midwife
DX: O42.02 Full-term premature rupture of membranes, onset of labor within 24 hours of rupture (principal); Z37.0 Single live birth; Z30.017 Encounter for initial prescription of implantable subdermal contraceptive; Z3A.39 39 weeks gestation of pregnancy; O99.344 Other mental disorders complicating childbirth; F32.A Depression, unspecified; O40.3XX0 Polyhydramnios, third trimester, not applicable or unspecified; O36.63X0 Maternal care for excessive fetal growth, third trimester, not applicable or unspecified; O99.334 Smoking (tobacco) complicating childbirth; F17.290 Nicotine dependence, other tobacco product, uncomplicated; F90.9 Attention-deficit hyperactivity disorder, unspecified type; M54.32 Sciatica, left side; O75.89 Other specified complications of labor and delivery; F60.3 Borderline personality disorder; Z30.8 Encounter for other contraceptive management
CPT/HCPCS: 11981; 00123; 36415; 76815; 80307; 84112; 85027; 86850; 86900; 86901; 59025; J2210; J2590; J3010; J7307

== ENCOUNTER 2024-05-15 00:12 | Outpatient (CLI) | payer MEDICAID, SELFPAY ==
--- NOTE | 2024-05-15 | DI.RAD_ITS ---
Exam(s) XR HIP LT COMPLETE AP PELVIS EXAM: XR HIP LT COMPLETE AP PELVIS CLINICAL HISTORY: Pain of lt hip joint, M25.552. TECHNIQUE: 2D digital imaging was performed of the left hip. Two views were obtained. AP pelvis an d lateral left hip views were obtained. COMPARISON: No exams were available for comparison FINDINGS: BONES: No acute fracture is present. No bony destructive lesion is seen. JOINTS: No dislocation present. SOFT TISSUE: Normal. IMPRESSION: Unremarkable radiographs of the left hip. Unremarkable radiographs of the pelvis DATA REPOSITORY: RADIATION DOSE DELIVERED:
== END 2024-05-15 00:32 ==
LOC: DI 00:12
PROVIDERS: PCP Nurse Practitioner Family; Visit Provider Nurse Practitioner Family
DX: M25.552 Pain in left hip (principal)
CPT/HCPCS: 73502

== ENCOUNTER → 2025-03-29 00:12 | Outpatient (CLI) | payer MEDICAID, SELFPAY ==
--- NOTE | 2025-03-29 06:27 | DI.MRI_ITS ---
Exam(s) MR LOWER JOINT LT WO EXAM: MR LOWER JOINT LT WO CLINICAL HISTORY: L HIP PAIN,labral tear lt hip,lt hip impingement syndrome,s73.192a TECHNIQUE: Multiplanar multisequence MRI of left hip was performed COMPARISON: CT CHEST ABD PELVIS WITH CONTRAST from 07/09/2017 CR XR HIP LT COMPLETE AP PELVIS from 05/15/2024 FINDINGS: Bones: There is no evidence of a fracture or avascular necrosis. There is a small amount of fluid in the joint spaces but no significant joint effusion is seen bilaterally. There is mild blunting and heterogeneity of the labrum anteriorly suspicious for tear. (Series [id number], image 24). There is mild red marrow reconversion noted. This is nonspecific. There is mild hyperintense signal seen in the lateral aspect of the left acetabular roof. The SI joints and symphysis pubis are well maintained. Musculotendinous structures: Musculotendinous structures demonstrate no abnormality. There is a 1.1 cm cyst in the right wall of the vagina which may represent a Patience's duct cyst. IMPRESSION: 1. Blunting and heterogeneity of the anterior labrum suspicious for tear. 2. No evidence of an acute fracture or avascular necrosis. 3. Incidentally noted is a 1.1 cm Patience duct cyst. DATA REPOSITORY:
== END ==
PROVIDERS: PCP Nurse Practitioner Family; Visit Provider Student in an Organized Health Care Education/Training Program
DX: S73.192D Other sprain of left hip, subsequent encounter (principal); M25.852 Other specified joint disorders, left hip; R93.7 Abnormal findings on diagnostic imaging of other parts of musculoskeletal system; X58.XXXD Exposure to other specified factors, subsequent encounter
CPT/HCPCS: 73721